=== PATIENT | female | born 1975 | race Caucasian/White ===

== ENCOUNTER 2017-02-15 12:13 | Observation (INO) | payer BC ==
[2017-02-15 12:45] LABS: #Eosinphils 0.1 thou/uL (0.0-0.7); #Lymphocytes 1.3 thou/uL (1.20-3.40); #Monocytes 0.4 thou/uL (0.11-0.59); #Neutrophils 6.4 thou/uL (1.40-6.50); %Basophils 0.3 % (0.0-1.0); %Eosinophils 0.6 % (0.0-10.0); %Lymphocytes 15.8 % (21.0-51.0); %Monocytes 4.9 % (0.0-10.0); Hematocrit 39.2 % (36.0-47.0); Red Blood Cell (RBC) Count 4.33 mill/uL (4.20-5.40); White Blood Cell (WBC) Count 8.2 thou/uL (4.8-10.8)
--- NOTE | 2017-02-15 12:56 | RAD ---
AP VIEW OF THE CHEST: INDICATION: Chest pain. COMPARISON: Prior exam dated 12/20/08. FINDINGS: Lungs are clear. There is mild to moderate cardiomegaly which is stable. Pulmonary vasculature is w ithin normal limits. No pleural effusion or pneumothorax is evident. IMPRESSION: Stable cardiomegaly. No definite acute cardiopulmonary abnormality. POS: [facility]
[2017-02-15 13:07] LABS: ALT (SGPT) 32 U/L (8-55); AST (SGOT) 28 U/L (5-34); Alkaline Phosphatase 90 U/L (40-150); Anion Gap 9 mmol/L (10-20); BUN (Urea Nitrogen) 13 mg/dL (7.0-18.7); Bilirubin, Total 0.4 mg/dL (0.2-1.2); CK (CPK) 35 U/L (29-168); Calc. Creatinine Clearance 0 mL/min (70-130); Calcium 8.6 mg/dL (7.8-10.44); Carbon Dioxide 29 mmol/L (22-29); Chloride 98 mmol/L (98-107); Estimated GFR-MDRD 81; Protein, Total 6.5 g/dL (6.0-8.3)
[2017-02-15 13:11] LABS: Troponin I Less than 0.010 ng/mL (< 0.028)
[2017-02-15] MEDS ORDERED: Nitroglycerin 2% Ointment 1 INCH/1 GM Packet ONE (14:31)
--- NOTE | 2017-02-15 14:39 | RAD ---
THREE VIEWS LEFT FOOT: History: Patient complains of left foot pain. FINDINGS: AP, lateral and oblique views of the left foot obtained. No evidence of left foot fractures, subluxations, or acute bony lesions seen. A calcaneal spur is see n. IMPRESSION: Calcaneal bone spur. No acute left foot bony abnormalities seen. POS: [facility]
--- NOTE | 2017-02-15 16:08 | HP ---
PRIMARY CARE PHYSICIAN: Monica Tristan, Family Nurse practitioner in [place]. REASON FOR ADMISSION: Chest pain and left foot pain. HISTORY OF PRESENT ILLNESS: A 41-year-old female with history of hypertension, diabetes type 2, dysl ipidemia, coronary artery disease with stent as well as morbid obesity, who was coming to emergency r oom for evaluation of her left foot pain which was ongoing for last 2-3 days. She reports her left f oot pain is in heel which is getting worse with walking, predominantly in the morning time and that w as bothering her and that is why she decided to come to emergency room for evaluation, but when they were on the way, at that time, patient was also having substernal chest pain which was pressure-like in sensation, 10/10 in intensity, radiating to left side of the chest associated with nausea and mild shortness of breath. That pain persisted up until they arrived to the emergency room, and after nit roglycerin, intensity of pain has significantly reduced to 5/10. She denied any associated palpitati ons, dizziness, or syncope. She denies any orthopnea, PND or leg swelling. Patient reports that this pain was exactly similar when she had cardiac catheterization and stent kamlesh willis in 07/2016 at [facility]. Subsequently, in 09/2016, patient had another cardiac ca theterization. At that time, her stent was patent and patient was advised on medical therapy. The patient reports that since September when patient was kept on Ranexa, she was not having any recurrent chest pain which she had before. She denies any fever or chills. She denies any trauma. She denie s any UTI symptoms. She denies any constipation, diarrhea, and melena. REVIEW OF SYSTEMS: The following complete review of systems was negative, unless otherwise mentioned in the HPI or below: Constitutional: Weight loss or gain, ability to conduct usual activities. Skin: Rash, itching. Eyes: Double vision, pain. ENT/Mouth: Nose bleeding, neck stiffness, pain, tenderness. Cardiovascular: Palpitations, dyspnea on exertion, orthopnea. Respiratory: Shortness of breath, wheezing, cough, hemoptysis, fever or night sweats. Gastrointestinal: Poor appetite, abdominal pain, heartburn, nausea, vomiting, constipation, or diarr hea. Genitourinary: Urgency, frequency, dysuria, nocturia. Musculoskeletal: Pain, swelling. Neurologic/Psychiatric: Anxiety, depression. Allergy/Immunologic: Skin rash, bleeding tendency. Please see my HPI for pertinent positive and negative. All other review of systems was reviewed and negative except as mentioned in the HPI. ALLERGIES: AMOXICILLIN and SULFA DRUGS. CURRENT HOME MEDICATIONS: Paxil 40 mg p.o. daily, metformin 1000 mg twice daily, glipizide 10 mg p.o . daily, Victoza 1.2 mg subcu daily, Mobic 15 mg p.o. daily, fenofibrate 145 mg p.o. daily, Lyrica 75 mg p.o. b.i.d., Tylenol #3 one tablet q.6 hourly p.r.n., Flexeril 10 mg t.i.d. p.r.n., Prinzide 20/1 2.5 one tablet p.o. daily, Novolin R as directed, aspirin one tablet p.o. daily, Lipitor 40 mg p.o. a t bedtime, Effient 10 mg p.o. daily, Protonix 40 mg p.o. daily. PAST MEDICAL HISTORY: Diabetes type 2, hypertension, dyslipidemia, coronary artery disease with sten t, morbid obesity, gastroesophageal reflux disease, chronic low back pain, diabetic neuropathy, and o steoarthritis. PAST SURGICAL HISTORY: Bilateral hand surgery, right shoulder surgery, right knee surgery, uvula rem stacy, appendicectomy, cholecystectomy, hysterectomy, tonsillectomy, lower back surgery, cardiac balta terization with stent placement in 07/2016, subsequent repeat cardiac catheterization in 09/2016, hys terectomy. PAST PSYCHIATRIC HISTORY: Anxiety and depression. SOCIAL HISTORY: Patient is and lives at home with family. No history of tobacco, alcohol or illicit drug abuse. FAMILY HISTORY: No strong family history of premature coronary artery disease, stroke or cancer. EMERGENCY ROOM COURSE: Patient is given nitro patch, aspirin 324 mg, and IV fluid. PHYSICAL EXAMINATION: VITAL SIGNS: On arrival, blood pressure 113/60, pulse 97, respiratory rate 22, temperature 98.1, sat uration 94% on room air, and weight 120 kilograms. GENERAL: Patient is currently alert, awake, no obvious acute distress. HEAD: Normocephalic, atraumatic. EYES: Pupils are round and reactive to light. Extraocular muscles intact. ENT: Oropharynx within normal limits. Moist mucous membranes. No oral lesions. No pharyngeal eryt mohini, no exudate. NECK: Supple, no JVD, no thyromegaly, no carotid bruit. LUNGS: Clear to auscultation without any rhonchi or rales. CARDIAC: S1 and S2 regular without any murmur. ABDOMEN: Soft, obesity present. Bowel sounds present, nontender, nondistended. No organomegaly, no mass, no suprapubic tenderness. BACK: Examination unremarkable, no CVA tenderness. EXTREMITIES: Upper extremity range of motion is normal. Lower extremities: No edema. Good periphe ral pulsation. Left heel tenderness. NEUROLOGIC: Nonfocal examination. HEMATOLOGICAL SYSTEM: No lymphadenopathy. SKIN: No skin rash. IMAGING AND SIGNIFICANT LABORATORY DATA: 1. EKG based on my review reveals normal sinus rhythm within normal limits. 2. X-ray foot showing large bone spur on the left heel. 3. Chest x-ray based on my review, no acute cardiopulmonary process. 4. CBC: WBC 8.2, hemoglobin 13.1, platelet 212. 5. BMP: Sodium 132, potassium 4.0, chloride 98, carbon dioxide 29, BUN 13, creatinine 0.78, glucose 324, calcium 8.6. 6. LFT: AST 28, ALT 32, alkaline phosphatase 90, albumin 3.5, CK 35, CK-MB 0.6, troponin I less irene n 0.010, BNP 18.8, lipase 49. ASSESSMENT AND PLAN/IMPRESSION: 1. Chest pain. Patient's chest pain description is atypical anginal. She has underlying coronary a rtery disease. At this point, her EKG is normal and her troponin is negative. Given acute onset of chest pain, we will keep this patient in hospital for observation and we will do serial cardiac enzym es and rule out acute coronary syndrome. We will check lipid profile for risk stratification. Meanw hile, we will continue with aspirin 325 mg p.o. daily, nitropatch q.8 hourly, and nitroglycerin p.r.n . basis. For further evaluation, we will do pharmacological stress test tomorrow morning. We will k eep her n.p.o. after midnight. This patient cannot do stress test exercise one because of her left h eel pain and her chronic back pain and that is why we will do pharmacological stress test. This norma ent also had cardiac catheterization in 09/2016. 2. Left heel pain, likely due to bone spur. The patient is advised to follow up on an outpatient ba sis with orthopedic physician. We will control with pain medication while in hospital. 3. Diabetes type 2, not well controlled. We will continue glipizide 10 mg p.o. daily, metformin 100 0 mg p.o. b.i.d. along with Victoza 1.2 mg subcu daily. We will also continue diabetic diet and insu lacey as per sliding scale protocol. 4. Dyslipidemia. We will check lipid profile tomorrow and continue fenofibrate 145 mg p.o. daily an d Lipitor 40 mg p.o. at bedtime. 5. Coronary artery disease with drug-eluting stent. We will continue Effient 10 mg p.o. daily and a spirin 325 mg p.o. daily. 6. Gastroesophageal reflux disease. We will continue Protonix 40 mg p.o. daily. 7. Hypertension. If blood pressure permits, then we will continue Prinzide 03/03.5 one tablet p.o. daily along with other medication. 8. Anxiety with depression. We will continue Paxil 40 mg p.o. daily. 9. Chronic low back pain. We will continue Flexeril 10 mg t.i.d. p.r.n. along with [place] p.r.n. bas is. 10. Diabetic neuropathy. We will continue Lyrica 75 mg twice daily. 11. Deep venous thrombosis prophylaxis not needed because we are expecting discharge in 24 hours. 12. Gastrointestinal prophylaxis, Protonix 40 mg p.o. daily. 13. Morbid obesity. Patient is given education about diet and weight loss education is given. Disposition plan based on stress test results, likely within 24 hours. Plan of care discussed with t daryn patient in detail in the emergency room.
[2017-02-15 16:28] LABS: Troponin I Less than 0.010 ng/mL (< 0.028)
[2017-02-15] MEDS ORDERED: Loperamide HCl 2 MG CAP PO PRN (18:10)
[2017-02-15] MEDS ORDERED: Milk Of Magnesia 30 ML UDCUP PO PRN (18:10)
[2017-02-15] MEDS ORDERED: Artificial Tears 18 DROP/0.9 ML EA EYE PRN (18:10)
[2017-02-15] MEDS ORDERED: Dextrose 50% Abboject 50 ML SYRINGE SLOW IVP PRN (18:10)
[2017-02-15] MEDS ORDERED: Sodium Chloride 0.65% Nasal 44 ML BOT EA NARE PRN (18:10)
[2017-02-15] MEDS ORDERED: hydrALAZINE 20 MG/ML VIAL SLOW IVP PRN (18:10)
[2017-02-15] MEDS ORDERED: Ondansetron ODT 4 MG TAB PO PRN (18:10)
[2017-02-15] MEDS ORDERED: Eucerin (Mineral Oil/Petrolatum,White) 30 gm Jar TOP PRN (18:10)
[2017-02-15] MEDS ORDERED: Ondansetron HCl/PF 4 MG/2 ML Vial IVP PRN (18:10)
[2017-02-15] MEDS ORDERED: HYDROcodone/Acetaminophen 5/325 mg Tablet PO PRN (18:10)
[2017-02-15] MEDS ORDERED: Senokot 8.6 MG TAB PO PRN (18:10)
[2017-02-15] MEDS ORDERED: Zolpidem Tartrate 5 MG TAB PO PRN (18:10)
[2017-02-15] MEDS ORDERED: Mag-Al 1200 mg/1200 mg/30 ML UDCUP PO PRN (18:10)
[2017-02-15] MEDS ORDERED: Loratadine 10 MG TAB PO PRN (18:10)
[2017-02-15] MEDS ORDERED: Cyclobenzaprine 10 MG TAB PO PRN (18:10)
[2017-02-15] MEDS ORDERED: Nitroglycerin 0.4 MG TAB (25 Tab Bottle) SL PRN (18:10)
[2017-02-15] MEDS ORDERED: Diabetic Tussin 200 MG/10 ML UDCUP PO PRN (18:10)
[2017-02-15] MEDS ORDERED: Dextrose 5% in Water 1,000 ML IV PRN (18:10)
[2017-02-15] MEDS ORDERED: Acetaminophen 325 MG TAB PO PRN (18:10)
[2017-02-15] MEDS ORDERED: HumaLOG 300 UNITS/3 ML VIAL SC PRN ×2 (18:10)
[2017-02-15 18:16] VITALS: BMI 45.4
[2017-02-15] MEDS ORDERED: metFORMIN 500 MG TAB PO SCH (18:30)
[2017-02-15 19:41] LABS: Troponin I Less than 0.010 ng/mL (< 0.028)
[2017-02-15] MEDS ORDERED: Atorvastatin Calcium 40 MG TAB PO SCH (21:00)
[2017-02-15] MEDS: Pregabalin 75 MG CAP PO SCH (21:04)
[2017-02-15] MEDS: Nitroglycerin 2% Ointment 1 INCH/1 GM Packet TOP SCH (21:07)
[2017-02-15] MEDS ORDERED: Insulin Detemir 100 UNITS/ML 10 UNITS in Pre-Filled Syringe 1 EACH SC SCH (22:45)
--- NOTE | 2017-02-16 05:39 | CON ---
HISTORY OF PRESENT ILLNESS: Kristi Mae is a 41-year-old white female, patient of Dr. Paz, who initially had a stent placed in [place]. She continued to have chest discomfort, underwent a repeat catheterization on 2016. She was found to have an ejection fraction of 55%. There was a 10% lesion proximal to the stent. The stent was widely patent without any jailing of the diagonal or septal branches. The remainder of coronary arteries were unremarkable. It was felt that she could possibly have microvascular angina and Ranexa 500 mg b.i.d. was added to her regimen. When she returned followup in 10/27/2016, she did not have any further episodes of chest discomfort or shortness of breath. She continued to be asymptomatic on the Ranexa until today when she was on her way to the emergency room for evaluation of left foot pain. She states that she again had the same chest pressure and heaviness that lasted approximately 1-1/2 hours and the pain was continuous. The pain was also somewhat pleuritic in nature. We just got to the emergency room when she had nitro paste applied, the pain resolved. At the present time, she is pain free. PAST MEDICAL HISTORY: Diabetes, hypertension, hypercholesterolemia, obstructive sleep apnea, obesity, anxiety. MEDICATIONS: When she was last seen in the office - vitamin D3, glipizide 10 mg b.i.d., Humulin R, Victoza 0.2 mL daily, metformin 500 mg 2 tablets b.i.d., Paxil 40 daily, Lyrica 75 mg - 2 capsules daily, folic acid daily, Levemir, meloxicam 15 mg daily, fenofibrate daily, Ranexa 500 mg b.i.d., Ecotrin 81 mg daily, Effient 10 mg daily, pantoprazole 40 mg b.i.d., atorvastatin 20 mg daily , lisinopril 5 mg daily, KCl 10 mEq daily, furosemide 20 daily. ALLERGIES: AMOXICILLIN, RASPBERRY, and SULFA. OPERATIONS: Bilateral hand surgery, right shoulder surgery, right knee surgery , uvulectomy, appendectomy, cholecystectomy, hysterectomy, tonsillectomy, lower back surgery, lithotripsy, and coronary stent placement. SOCIAL HISTORY: She does not smoke or drink. FAMILY HISTORY: Negative for coronary artery disease. REVIEW OF SYSTEMS: Twelve point review of systems otherwise unremarkable. PHYSICAL EXAMINATION: VITAL SIGNS: Blood pressure 118/67, pulse 94. HEENT: PERRL. NECK: Supple. CHEST: Clear. CARDIAC: S1 and S2 are normal without any S3, S4, or murmurs. ABDOMEN: Obese, normal bowel sounds. No tenderness. EXTREMITIES: Revealed no clubbing, cyanosis, or edema. NEUROLOGIC: Grossly intact. SKIN: Warm and dry. LABORATORY DATA AND DIAGNOSTIC DATA: EKG revealed normal sinus rhythm and is unremarkable. CBC is unremarkable. Sodium 132, potassium 4.0, chloride 98, carbon dioxide 29, BUN 13, creatinine 0.78, glucose 324. Cardiac enzymes are negative x2. IMPRESSION: 1. Recurrence of chest discomfort. She has been pain free for over 4 months on Ranexa. This certainly could represent microvascular angina. 2. History of stent placement in the proximal left anterior descending with continued good results in 09/2016. 3. Hypertension. 4. Diabetes. 5. Hypercholesterolemia. 6. Obesity. PLAN: Ranexa will be increased from 500 b.i.d. to 1000 mg b.i.d. With cardiac catheterization, 4-5 months ago, no other diagnostic evaluation may be needed. The patient will be further evaluated by Dr. Paz in the morning. DANN
[2017-02-16] MEDS: Nitroglycerin 2% Ointment 1 INCH/1 GM Packet TOP SCH (06:44)
[2017-02-16] MEDS ORDERED: glipiZIDE 10 MG TAB PO SCH (07:30)
[2017-02-16] MEDS ORDERED: metFORMIN 500 MG TAB PO SCH (08:00)
[2017-02-16 08:28] VITALS: BP 124/61; TEMP 97.6
[2017-02-16] MEDS ORDERED: Prasugrel 10 MG TAB PO SCH (09:00)
[2017-02-16] MEDS ORDERED: PARoxetine 20 MG TAB PO SCH (09:00)
[2017-02-16] MEDS ORDERED: Lisinopril/Hydrochlorothiazide 20 mg/12.5 mg Tablet PO SCH (09:00)
[2017-02-16] MEDS ORDERED: Aspirin 325 MG TAB PO SCH (09:00)
[2017-02-16] MEDS ORDERED: Fenofibrate Nanocrystallized 145 MG TAB PO SCH (09:00)
[2017-02-16] MEDS: Pregabalin 75 MG CAP PO SCH (09:26)
--- NOTE | 2017-02-16 09:56 | PRG ---
DATE OF SERVICE: 02/16/2017 Ms. Mae is feeling better today. She had a prolonged episode of anginal type chest pain yesterday. She is doing well today. PHYSICAL EXAMINATION: VITAL SIGNS: Blood pressure is 124/61, pulse 80, it is regular. LUNGS: Clear. CARDIAC: Normal S1, normal S2. ASSESSMENT: 1. Previous stent implantation. 2. Cardiac catheterization this summer showing no restenosis, no significant areas of ischemia. 3. Negative cardiac enzymes, negative EKG. 4. This may be microvascular angina versus spasm. PLAN: 1. Add nitroglycerin if needed. 2. Increase Ranexa. 3. Follow up with me in a couple of months in the office.
--- NOTE | 2017-02-16 11:06 | DIS ---
DATE OF ADMISSION: 02/15/2017 DATE OF DISCHARGE: 02/16/2017 PRIMARY CARE PHYSICIAN: WM Lozada, Nurse Practitioner DISCHARGE DISPOSITION: Home. PRIMARY DISCHARGE DIAGNOSES: 1. Chest pain, ruled out acute coronary syndrome, suspected from microvascular angina. 2. Left foot pain due to calcaneal bones spur. SECONDARY DISCHARGE DIAGNOSES: Coronary artery disease with history of stent, hypertension, dyslipid emia, diabetes type 2, morbid obesity, gastroesophageal reflux disease, chronic low back pain, anxiet y, and depression. PRIMARY PROCEDURE/OPERATION: None. RADIOLOGICAL INVESTIGATION: Chest x-ray showed no acute cardiopulmonary process. Foot x-ray showed calcaneal bone spur. SIGNIFICANT LABORATORY DATA: WBC 8.2, hemoglobin 13.1, platelet 212, LDL 23, HDL 32, total cholester ol 88. Cardiac enzymes negative. Lipase 49, sodium 132, creatinine 0.78. LFTs normal. BNP 18.8. DISCHARGE MEDICATIONS: New medications, Ranexa 1000 mg p.o. b.i.d. Continue following medications: Tylenol #3 one tablet q.6 hours p.r.n., aspirin 81 mg p.o. daily, Lipitor 20 mg p.o. daily, vitamin D3 3000 units p.o. daily, Flexeril 10 mg t.i.d. p.r.n., fenofibrate 145 mg p.o. daily, Lasix 20 mg p. o. daily, glipizide ER 10 mg p.o. b.i.d., Levemir 20 units subcutaneous at bedtime, Novolin R 10 unit s subcu t.i.d. with meals, Victoza 1.2 mg subcutaneously daily, lisinopril 5 mg p.o. daily, Mobic 15 mg p.o. daily, metformin ER 1000 mg p.o. b.i.d., Protonix 40 mg p.o. daily, Paxil 40 mg p.o. daily, E ffient 10 mg p.o. daily, Lyrica 100 mg twice daily. CONTRAINDICATIONS: None. CODE STATUS: FULL CODE. INPATIENT CONSULTANTS: Dr. Berry and Dr. Paz saw this patient while in hospital. TEST RESULTS PENDING ON DISCHARGE: None. ALLERGIES: AMOXICILLIN, RASPBERRY and SULFA DRUGS. DISCHARGE PLAN: Post hospital, the patient will follow up with primary care physician. DISCHARGE DISPOSITION: Home. The patient will follow up with primary care physician in 1 week and Jessica Paz as instructed. HOSPITAL COURSE: A 41-year-old female who was coming to the ER for evaluation of her left calcaneal pain and on the way to coming to the ER, patient was having chest pain and that was improved with nit roglycerin. The patient had electrocardiogram which was unremarkable. Cardiac enzymes were negative . The patient was admitted for observation. We initially tried to do a stress test, but Cardiology saw this patient and they recommended not to do a stress test given she had a negative cardiac cathet erization in 09/2016. Patient was improving with the Ranexa and that is why this time, Cardiology re commended to increased dose of Ranexa to 1000 mg p.o. b.i.d. Rest of medication was continued as per previous. Her cardiac enzymes remained negative. Her chest pain resolved. Her calcaneal pain is also improvin g. We advised her to follow up with orthopedic physician as an outpatient basis. Patient was okay w ith not doing any further testing as per Cardiology. The patient is seen and examined at bedside cuco smith. PHYSICAL EXAMINATION: VITAL SIGNS: Currently, temperature 97.6, pulse 82, respiratory rate 16, saturation 93%, blood pres sure 124/61, weight 276 pounds. GENERAL: The patient is currently alert, awake, no acute distress. HEAD: Normocephalic, atraumatic. LUNGS: Clear. CARDIAC: S1, S2 regular without any murmur. ABDOMEN: Soft and benign. EXTREMITIES: No edema. NEUROLOGIC: Nonfocal examination. The patient is medically stable for discharge today.
== END 2017-02-16 10:50 | disposition home or self-care (01) ==
LOC: ERS 12:13 → 2SW 14:53
PROVIDERS: ADMIT Internal Medicine; ATTEND Internal Medicine
DX: M79.672 Pain in left foot (principal); I25.10 Atherosclerotic heart disease of native coronary artery without angina pectoris; I10 Essential (primary) hypertension; E66.01 Morbid (severe) obesity due to excess calories; K21.9 Gastro-esophageal reflux disease without esophagitis; M54.5 Low back pain; G89.29 Other chronic pain; E11.40 Type 2 diabetes mellitus with diabetic neuropathy, unspecified; M19.90 Unspecified osteoarthritis, unspecified site; F41.8 Other specified anxiety disorders; G47.33 Obstructive sleep apnea (adult) (pediatric); E78.00 Pure hypercholesterolemia, unspecified; Z68.42 Body mass index [BMI] 45.0-49.9, adult; Z79.1 Long term (current) use of non-steroidal anti-inflammatories (NSAID); Z79.02 Long term (current) use of antithrombotics/antiplatelets; Z79.82 Long term (current) use of aspirin; Z79.4 Long term (current) use of insulin; Z79.899 Other long term (current) drug therapy; Z88.0 Allergy status to penicillin; Z88.2 Allergy status to sulfonamides; Z91.018 Allergy to other foods; Z95.818 Presence of other cardiac implants and grafts; Z90.49 Acquired absence of other specified parts of digestive tract; Z90.710 Acquired absence of both cervix and uterus; Z90.89 Acquired absence of other organs; Z98.890 Other specified postprocedural states
CPT/HCPCS: 36415; 36416; 71010; 80053; 80061; 82553; 83690; 83880; 84484; 85025; 93005; 96360; 96361; A4216; G0378; J1815

== ENCOUNTER 2017-04-03 18:25 | Emergency (ER) | payer BC ==
[2017-04-03 19:21] LABS: #Basophils 0.1 thou/uL (0.0-0.2); #Eosinphils 0.3 thou/uL (0.0-0.7); #Lymphocytes 3.7 thou/uL (1.20-3.40); #Monocytes 0.5 thou/uL (0.11-0.59); #Neutrophils 5.3 thou/uL (1.40-6.50); %Basophils 0.6 % (0.0-1.0); %Eosinophils 2.6 % (0.0-10.0); %Lymphocytes 37.7 % (21.0-51.0); %Monocytes 5.3 % (0.0-10.0); %Neutrophils 53.9 % (42.0-75.0); Hemoglobin 13.1 g/dL (12.0-16.0); Mean Corpuscular HGB CONC 32.7 g/dL (32.0-36.0); Mean Corpuscular Volume 88.5 fl (81.0-99.0); Mean Platelet Volume 7.5 fL (7.4-10.4); Platelet Count 236 thou/uL (130-400); RBC Distribution Width 12.9 % (11.5-14.5); Red Blood Cell (RBC) Count 4.51 mill/uL (4.20-5.40); White Blood Cell (WBC) Count 9.9 thou/uL (4.8-10.8)
[2017-04-03 19:48] LABS: ALT (SGPT) 34 U/L (8-55); AST (SGOT) 18 U/L (5-34); Albumin 3.9 g/dL (3.5-5.0); Alkaline Phosphatase 111 U/L (40-150); Anion Gap 15 mmol/L (10-20); BUN (Urea Nitrogen) 11 mg/dL (7.0-18.7); Bilirubin, Total 0.2 mg/dL (0.2-1.2); Calc. Creatinine Clearance 0 mL/min (70-130); Calcium 9.8 mg/dL (7.8-10.44); Carbon Dioxide 25 mmol/L (22-29); Chloride 100 mmol/L (98-107); Estimated GFR-MDRD 85; Glucose 301 mg/dL (70-105); Protein, Total 6.9 g/dL (6.0-8.3); Sodium 136 mmol/L (136-145)
--- NOTE | 2017-04-03 20:32 | RAD ---
LEFT FOOT: 04/03/17 Three views. HISTORY: Left foot pain. FINDINGS/IMPRESSION: Enthesophytes are seen from the plantar and posterior calcaneus. Plantar enthesophyte measures up to 1.0 cm. Mild degenerative change at the tarsometatarsal joints. MTP and IP joints are unremarkable wi th minimal DJD at the first MTP joint. No fracture or acute abnormality identified. POS: [facility]
--- NOTE | 2017-04-03 22:56 | CT ---
CT SCAN OF LEFT FOOT: 04/03/17 Multiple axial tomograms obtained through the left foot with multiplanar reconstructions. HISTORY: Fell one month ago with persistent left foot pain. FINDINGS: Enthesophytes are seen from the plantar and posterior calcaneus. The plantar enthesophyte measures ap proximately 1.5 cm in length. The tarsals appear intact. There are degenerative changes in the intert arsal joints with mild spurring. Anterior spurring is seen from the second cuneiform. Tarsometatarsal alignment is normally maintained. There is no fracture or dislocation seen. The metatarsals and phal anges appear intact. IMPRESSION: There are degenerative changes as described. No acute fracture identified. POS: [facility]
[2017-04-03] MEDS ORDERED: HYDROcodone/Acetaminophen 10/325 mg Tablet ONE (23:08)
== END 2017-04-04 00:10 | disposition home or self-care (01) ==
LOC: ERS 18:25
DX: S93.402A Sprain of unspecified ligament of left ankle, initial encounter (principal); I10 Essential (primary) hypertension; E11.9 Type 2 diabetes mellitus without complications; X50.1XXA Overexertion from prolonged static or awkward postures, initial encounter
CPT/HCPCS: 36415; 80053; 85025; 85379

== ENCOUNTER 2017-06-04 13:17 | Outpatient (CLI) | payer BC ==
--- NOTE | 2017-06-04 14:57 | ULT ---
LEFT LOWER EXTREMITY VENOUS DOPPLER ULTRASOUND: 06/04/2017 HISTORY: Left lower extremity edema and pain. Assess for DVT. COMPARISON: None. TECHNIQUE: Multiplanar [place]-scale sonographic imaging of the venous structures of the left lower extremity obtai john with color-flow and spectral analysis. FINDINGS: The left common femoral vein, greater saphenous vein, profunda femoral vein, femoral vein, popliteal vein, and posterior tibial vein are patent. There is normal blood flow, augmentation, and compressio n within the deep venous system of the left lower extremity. No evidence for DVT. IMPRESSION: No evidence for deep venous thrombosis of the left lower extremity. POS: [facility]
== END 2017-06-04 13:18 | disposition home or self-care (01) ==
LOC: ULT 13:17
PROVIDERS: ATTEND Nurse Practitioner Family
DX: M79.605 Pain in left leg (principal); R60.0 Localized edema

== ENCOUNTER 2018-11-17 17:01 | Observation (INO) | payer BC ==
--- NOTE | 2018-11-17 17:24 | RAD ---
Chest 2 views HISTORY: Chest pain. COMPARISON: 12/20/2008. FINDINGS: Cardiac silhouette is upper limits of normal in size. Shallow inspiration accentuates pulmo nary markings. Mediastinum is midline. No confluent airspace consolidation, pneumothorax, or pleural fluid are apparent. IMPRESSION: No active cardiopulmonary abnormalities are demonstrated.
[2018-11-17 17:31] LABS: Bilirubin Small (Negative); Blood, Urine Negative (Negative); Glucose, Urine (Dipstick) Negative (Negative); Leukocyte Trace (Negative); Nitrite Positive (Negative); Protein, Urine (Dipstick) 100 mg/dL (Neg-Trace); Urobilinogen 0.2 mg/dL (Less than 2)
[2018-11-17 17:32] LABS: Clarity Turbid (Clear)
[2018-11-17 17:42] LABS: #Basophils 0.1 thou/uL (0.0-0.2); #Eosinphils 4.1 thou/uL (0.0-0.7); #Lymphocytes 5.3 thou/uL (1.20-3.40); #Monocytes 0.6 thou/uL (0.11-0.59); #Neutrophils 8.1 thou/uL (1.40-6.50); %Basophils 0.7 % (0.0-1.0); %Eosinophils 22.7 % (0.0-10.0); %Lymphocytes 28.8 % (21.0-51.0); %Monocytes 3.3 % (0.0-10.0); %Neutrophils 44.4 % (42.0-75.0); Hemoglobin 13.6 g/dL (12.0-16.0); Mean Corpuscular HGB CONC 33.9 g/dL (32.0-36.0); Mean Corpuscular Hemoglobin 29.7 pg (27.0-31.0); Mean Corpuscular Volume 87.7 fL (78.0-98.0); Mean Platelet Volume 8.1 fL (7.4-10.4); Platelet Count 270 thou/uL (130-400); Red Blood Cell (RBC) Count 4.58 mill/uL (4.20-5.40); White Blood Cell (WBC) Count 18.2 thou/uL (4.8-10.8)
[2018-11-17 17:44] LABS: Bacteria/HPF 4+ HPF (None Seen); RBC/HPF 0-3 HPF (0-3); Squamous Epithelial 21-50 HPF (0-3)
[2018-11-17 18:06] LABS: ALT (SGPT) 48 U/L (8-55); AST (SGOT) 34 U/L (5-34); Albumin 4.1 g/dL (3.5-5.0); Alkaline Phosphatase 112 U/L (40-150); Anion Gap 13 mmol/L (10-20); BUN (Urea Nitrogen) 22 mg/dL (7.0-18.7); Bilirubin, Total 0.3 mg/dL (0.2-1.2); Calc. Creatinine Clearance 0 mL/min (70-130); Calcium 9.7 mg/dL (7.8-10.44); Carbon Dioxide 29 mmol/L (22-29); Chloride 97 mmol/L (98-107); Estimated GFR-MDRD 58; Globulin 3.3 g/dL (2.4-3.5); Glucose 219 mg/dL (70-105); Potassium 3.9 mmol/L (3.5-5.1); Protein, Total 7.4 g/dL (6.0-8.3); Sodium 135 mmol/L (136-145)
[2018-11-17] MEDS ORDERED: Ondansetron ODT 4 MG TAB ONE (20:02)
[2018-11-17] MEDS ORDERED: Meclizine HCl 25 MG TAB ONE ×2 (20:02→20:42)
[2018-11-17 20:37] LABS: Troponin I Less than 0.010 ng/mL (< 0.028)
[2018-11-17] MEDS ORDERED: Aspirin Chewable 81 MG TAB ONE (20:42)
[2018-11-17] MEDS ORDERED: Ondansetron PF 4 MG/2 ML Vial ONE (20:42)
[2018-11-17] MEDS ORDERED: cefTRIAXone\\ROCEPHIN 1 GM VIAL ONE (20:42)
[2018-11-17 22:46] VITALS: BMI 43.0
[2018-11-17] MEDS ORDERED: Ondansetron ODT 4 MG TAB SL PRN (22:51)
[2018-11-17] MEDS ORDERED: Ondansetron PF 4 MG/2 ML Vial IVP PRN (22:51)
[2018-11-18 00:08] LABS: Troponin I Less than 0.010 ng/mL (< 0.028)
[2018-11-18] MEDS ORDERED: Ondansetron PF 4 MG/2 ML Vial IVP PRN (00:55)
[2018-11-18] MEDS ORDERED: Ondansetron ODT 4 MG TAB PO PRN (00:55)
[2018-11-18] MEDS ORDERED: Acetaminophen 650 MG Suppository PR PRN (00:55)
[2018-11-18] MEDS ORDERED: Cyclobenzaprine 10 MG TAB PO PRN (01:04)
[2018-11-18] MEDS ORDERED: Pregabalin 50 MG CAP PO SCH (01:30)
[2018-11-18] MEDS ORDERED: Amitriptyline HCl 25 MG TAB PO SCH ×2 (01:30→21:00)
[2018-11-18] MEDS ORDERED: Sodium Chloride 0.45% 1,000 ML IV SCH (02:00)
[2018-11-18] MEDS ORDERED: Dextrose 5% in Water 1,000 ML IV PRN (02:03)
[2018-11-18] MEDS ORDERED: Insulin Regular 300 UNITS/3 ML VIAL SC PRN ×2 (02:03)
[2018-11-18] MEDS ORDERED: Dextrose 50% Abboject 50 ML SYRINGE SLOW IVP PRN (02:03)
--- NOTE | 2018-11-18 02:51 | HP ---
PRIMARY CARE PHYSICIAN: Jaswinder Laboy MD CHIEF COMPLAINT: Lightheadedness, weakness, and tachycardia. HISTORY OF PRESENT ILLNESS: Ms. Mae is a 43-year-old woman, with a past medical history of coronary artery disease, who had an AZ in 2017 and presents today due to concerns of her lightheadedness and tachycardia which she experienced earlier today. She states she has been feeling unwell for the last 2 to 3 days. She states she has had moments of feeling very lightheaded and as if she might faint or as if her legs might give out. She feels generally weak and worn out. She has also noted some shortness of breath with exertion. Today, she had a similar episode while at work and used her Apple Watch to check her heart rate and noted it was in the 120s. She checked it once again 15 minutes later and it continued to be elevated. She denies having any chest pain per se, but states she has been experiencing a pressure and stretching sensation. She denies having any cough or hemoptysis. She opted to come to the emergency department and in the ER, she was noted to have a slightly elevated heart rate of 103. She had a blood pressure of 108/61. She had an EKG done showing sinus tachycardia with a heart rate of 104. No ST-segment changes or T-wave abnormalities present. A chest x-ray was obtained and showed no intrathoracic abnormalities. Due to the reported chest pressure and cardiac history with comorbidities including diabetes and hypertension, she was referred for ACS rule out. While in the ER, she did undergo laboratory studies that were notable for a white count of 18.2. Her sodium was slightly low at 135, potassium normal at 3.9. Renal function was reduced compared to baseline. She has a BUN of 22, creatinine of 1.03, and a GFR of 58 compared to 85 over a year ago. No recent renal functions to compare to. The patient does state that she has been very well hydrated the last several days. LFTs were unremarkable. Troponin negative x2. Urinalysis was done and notable for turbid appearance, 100 of protein, trace ketones, positive for nitrites, trace leukocyte esterase, 7 to 10 white blood cells, and 4+ bacteria. She denies having any flank pain or suprapubic discomfort. No dysuria or hematuria. She was given 1 g ceftriaxone. PAST MEDICAL HISTORY: 1. Type 2 diabetes mellitus. 2. Hypertension. 3. Coronary artery disease. 4. AZ in 2017. 5. Obesity. PAST SURGICAL HISTORY: 1. Bilateral hand surgery. 2. Right shoulder surgery. 3. Right knee surgery. 4. Uvula removed. 5. . 6. Appendectomy. 7. Cholecystectomy. 8. Hysterectomy. 9. Tonsillectomy. 10. Low back surgery in September 2014. 11. Heart stent x1 in July 2016. 12. Hysterectomy. SOCIAL HISTORY: She lives at home with her family. Denies any alcohol use, drug use, or smoking. ALLERGIES: 1. AMOXICILLIN. 2. SULFA. CURRENT MEDICATIONS: 1. Lisinopril/hydrochlorothiazide. 2. Metformin. 3. Glipizide. 4. Victoza. 5. Lyrica. 6. Novolin. 7. Effient. 8. Paxil. 9. Amitriptyline. 10. Levemir. 11. Aspirin. PHYSICAL EXAMINATION: GENERAL: The patient appears well developed, well nourished, and is in no acute distress. VITAL SIGNS: Temperature 97.6, pulse 94, respirations 15, O2 saturation 95% on room air, blood pressure 108/59. HEENT: Normocephalic and atraumatic. Pupils are equal, round, and reactive to light. Sclerae are without icterus. Oropharynx is clear. NECK: Supple without lymphadenopathy. LUNGS: Clear to auscultation bilaterally without any wheezes, rales, or rhonchi. CARDIAC: Regular rate and rhythm. ABDOMEN: Soft, nontender, nondistended. Normoactive bowel sounds present. EXTREMITIES: No lower leg swelling or edema. NEUROLOGIC: Alert and oriented x3. SKIN: Warm and dry. Face has a flushed appearance, however, afebrile. No rash or jaundice. INVESTIGATIONS: As mentioned above in HPI. IMPRESSION AND PLAN: Ms. Mae is a 43-year-old woman, who has been referred for management of the following. 1. Presyncope. The patient with multiple comorbidities including coronary artery disease. Echocardiogram has been requested. We will check orthostatic blood pressures. This is likely associated with underlying infection and dehydration. 2. Acute coronary syndrome rule out. The patient, however, reported pressure or tightness across her chest. States this feels different from her previous myocardial infarction. Given comorbidities and previous myocardial infarction, she has been referred for acute coronary syndrome rule out. Troponins negative x2. We will continue to trend. We will add a D-dimer given the shortness of breath and tachycardia. 3. Urinary tract infection. The patient was tachycardic with an elevated white count of 18.2 and with blood pressure on the lower side. She is likely septic from urinary tract infection. IV antibiotics started and we will continue. This is more likely the cause of her generalized weakness and presyncopal episodes as well as tachycardia. We will add on lactic acid. We will give IV fluids. Urine culture requested. 4. Hypertension. We will hold her blood pressure medications for now given the low blood pressure and reduced renal function, though unsure what her baseline is as the last creatinine and GFR available on file is over a year ago. 5. Diabetes mellitus. We will resume home medications. We will initiate insulin sliding scale. Continue to monitor glucose. 6. Gastrointestinal prophylaxis. We will resume her Protonix. 7. Deep venous thrombosis prophylaxis. Awaiting D-dimer. The patient is ambulatory. 8. Code status, full. Her surrogate decision maker is her , Robert Mae. The patient's case discussed with attending who agrees with plan of care as described above. Job ID: [id number]
[2018-11-18] MEDS: Sodium Chloride 0.45% 1,000 ML IV SCH ×3 (03:40→22:48)
[2018-11-18 04:19] LABS: #Basophils 0.1 thou/uL (0.0-0.2); #Eosinphils 3.8 thou/uL (0.0-0.7); #Lymphocytes 5.2 thou/uL (1.20-3.40); #Monocytes 0.7 thou/uL (0.11-0.59); #Neutrophils 6.1 thou/uL (1.40-6.50); %Basophils 0.7 % (0.0-1.0); %Eosinophils 23.9 % (0.0-10.0); %Lymphocytes 32.7 % (21.0-51.0); %Monocytes 4.3 % (0.0-10.0); %Neutrophils 38.4 % (42.0-75.0); Mean Platelet Volume 7.9 fL (7.4-10.4); Platelet Count 237 thou/uL (130-400); RBC Distribution Width 13.1 % (11.5-14.5); Red Blood Cell (RBC) Count 4.35 mill/uL (4.20-5.40); White Blood Cell (WBC) Count 15.8 thou/uL (4.8-10.8)
[2018-11-18 04:36] LABS: Anion Gap 12 mmol/L (10-20); BUN (Urea Nitrogen) 23 mg/dL (7.0-18.7); Calc. Creatinine Clearance 164 mL/min (70-130); Calcium 9.1 mg/dL (7.8-10.44); Carbon Dioxide 28 mmol/L (22-29); Chloride 97 mmol/L (98-107); Estimated GFR-MDRD 77; Glucose 189 mg/dL (70-105); Sodium 133 mmol/L (136-145)
[2018-11-18 05:41] LABS: Lactic Acid 1.4 mmol/L (0.5-2.2)
--- NOTE | 2018-11-18 08:36 | CT ---
PRELIMINARY REPORT/[facility]/EMERGENCY AFTER HOURS PROCEDURE: EXAM: CT Angiography Chest With Contrast EXAM DATE/TIME: 11/18/2018 2:16 AM CLINICAL HISTORY: 43 years old, female; Patient HX: Chest pain, SOB on exertion, elevated d-dimer TECHNIQUE: Imaging protocol: Computed tomographic angiography of the chest with intravenous contrast. 3D renderi ng: MIP reconstructed images were created and reviewed. COMPARISON: No relevant prior studies available. FINDINGS: Pulmonary arteries: Normal. No pulmonary emboli. Aorta: Unremarkable. No aortic aneurysm. No aortic dissection. Lungs: Lungs are clear allowing for expiratory phase imaging. Pleural space: Unremarkable. No pneumothorax. No pleural effusion. Heart: Unremarkable. No cardiomegaly. No pericardial effusion. Mediastinum: Esophagus is unremarkable. Lymph nodes: Unremarkable. No enlarged lymph nodes. Bones/joints: Unremarkable. No acute fracture. Soft tissues: Unremarkable. IMPRESSION: No acute findings. Thank you for allowing us to participate in the care of your patient. Dictated and Authenticated by: Minh Coreas MD 11/18/2018 3:02 AM Central Time ([place] & [place]) FINAL REPORT CT PULMONARY ANGIOGRAM WITH IV CONTRAST AND 3D POST PROCESSING: I agree with the preliminary report given by Dr. Minh Coreas of [facility]. POS: [facility]
[2018-11-18] MEDS ORDERED: Lisinopril/Hydrochlorothiazide 20/25 mg Tablet PO SCH (09:00)
[2018-11-18] MEDS ORDERED: Liraglutide [Victoza 3-Pak] 1.2 MG SC SCH (09:00)
[2018-11-18] MEDS ORDERED: Furosemide 20 MG TAB PO SCH (09:00)
[2018-11-18] MEDS ORDERED: Famotidine/PF 20 mg/2ml Vial SLOW IVP SCH (09:00)
[2018-11-18] MEDS: PARoxetine 20 MG TAB PO SCH (09:26)
[2018-11-18] MEDS: Pregabalin 50 MG CAP PO SCH ×2 (09:26→21:37)
[2018-11-18] MEDS: Prasugrel 10 MG TAB PO SCH (09:27)
[2018-11-18] MEDS: Aspirin Chewable 81 MG TAB PO SCH (09:27)
[2018-11-18] MEDS: Insulin Regular 300 UNITS/3 ML VIAL SC SCH ×4 (09:28→21:47)
[2018-11-18] MEDS ORDERED: Iopamidol 370 76% 100 ML VIAL ONE (10:23)
--- NOTE | 2018-11-18 17:26 | PDOC.HOSPP ---
- Subjective Encounter Date: 11/18/18 Encounter Time: 09:45 Subjective: pt up in bed no complains - Objective Vital Signs & Weight: Vital Signs (12 hours) Temp Pulse Resp BP Pulse Ox 11/18/18 13:57 97.6 F 96 16 109/61 94 L 11/18/18 11:15 98 F 84 18 117/65 93 L 11/18/18 08:00 97.9 F 90 20 113/62 93 L Weight Weight 258 lb 11.2 oz Result Diagrams: 11/18/18 04:08 11/18/18 04:08 Additional Labs: Accuchecks 11/18/18 11/18/18 11/17/18 10:21 05:38 22:40 POC Glucose 175 H 162 H 130 H Hospitalist ROS - Review of Systems Cardiovascular: denies: chest pain, palpitations, orthopnea, paroxysmal noc. dyspnea, edema, light headedness, other Gastrointestinal: denies: nausea, vomitting, abdominal pain, diarrhea, constipation, melena, hematochezia, other - Medication Medications: Active Medications Generic Name Dose Route Start Last Admin Trade Name Freq PRN Reason Stop Dose Admin Aspirin 81 mg 11/18/18 09:00 11/18/18 09:27 Aspirin Chewable PO 81 mg DAILY TRACEY Administration Cholecalciferol 3,000 units 11/18/18 09:00 11/18/18 09:27 Vitamin D3 PO 3,000 units QAM TRACEY Administration Sodium Chloride 1,000 mls @ 125 mls/hr 11/18/18 03:41 11/18/18 10:58 1/2 Normal Saline IV 1,000 mls .Q8H TRACEY Administration Insulin Human Regular 15 units 11/18/18 08:00 11/18/18 12:31 Humulin R SC Not Given QID-WM TRACEY Pantoprazole Sodium 40 mg 11/18/18 09:00 11/18/18 09:27 Protonix PO 40 mg DAILY TRACEY Administration Paroxetine HCl 40 mg 11/18/18 09:00 11/18/18 09:26 Paxil PO 40 mg QAM TRACEY Administration Prasugrel 10 mg 11/18/18 09:00 11/18/18 09:27 Effient PO 10 mg QAM TRACEY Administration Pregabalin 100 mg 11/18/18 09:00 11/18/18 09:26 Lyrica PO 100 mg BID TRACEY Administration - Exam Neck: negative: supple, symmetric, no JVD, no thyromegaly, no lymphadenopathy, no carotid bruit, JVD Heart: negative: RRR, no murmur, no gallops, no rubs, normal peripheral pulses, irregular, diminshed peripheral pulses, murmur present, II/IV, III/IV Respiratory: negative: CTAB, no wheezes, no rales, no ronchi, normal chest expansion, no tachypnea, normal percussion, rales, rhonchi, tachypneic, wheezes Hosp A/P (1) Sepsis Code(s): A41.9 - SEPSIS, UNSPECIFIED ORGANISM Status: Acute (2) UTI (urinary tract infection) Status: Acute (3) Hypertension Code(s): I10 - ESSENTIAL (PRIMARY) HYPERTENSION Status: Chronic (4) Morbid obesity with BMI of 45.0-49.9, adult Code(s): E66.01 - MORBID (SEVERE) OBESITY DUE TO EXCESS CALORIES; Z68.42 - BODY MASS INDEX (BMI) 45.0-49.9, ADULT Status: Chronic - Plan will continue abx for now. will do a stress test on pt since she states she has been sob on exertion. cta negative.
[2018-11-18] MEDS: Acetaminophen 325 MG TAB PO PRN (20:08)
[2018-11-18] MEDS ORDERED: Insulin Glargine 20 UNITS in Pre-Filled Syringe 1 EACH SC SCH (21:00)
[2018-11-18] MEDS ORDERED: Non-Formulary Item 1 EACH (Insulin Detemir 100 Units/Ml [Levemir] 20 UNITS) SQ SCH (21:00)
[2018-11-18] MEDS ORDERED: cefTRIAXone\\ROCEPHIN 1 GM in Sodium Chloride 0.9% 100 ML IVPB SCH (21:00)
[2018-11-19 08:09] VITALS: TEMP 97.7
[2018-11-19 08:10] LABS: #Eosinphils 1.8 thou/uL (0.0-0.7); #Lymphocytes 3.9 thou/uL (1.20-3.40); #Monocytes 0.5 thou/uL (0.11-0.59); #Neutrophils 4.4 thou/uL (1.40-6.50); %Basophils 0.4 % (0.0-1.0); %Lymphocytes 36.9 % (21.0-51.0); %Monocytes 4.6 % (0.0-10.0); %Neutrophils 41.2 % (42.0-75.0); Hemoglobin 12.8 g/dL (12.0-16.0); Mean Corpuscular HGB CONC 33.7 g/dL (32.0-36.0); Mean Corpuscular Hemoglobin 29.7 pg (27.0-31.0); Mean Platelet Volume 7.7 fL (7.4-10.4); Platelet Count 210 thou/uL (130-400); RBC Distribution Width 12.7 % (11.5-14.5); White Blood Cell (WBC) Count 10.7 thou/uL (4.8-10.8)
[2018-11-19] MEDS: Insulin Regular 300 UNITS/3 ML VIAL SC SCH ×2 (08:22→11:20)
[2018-11-19] MEDS: Sodium Chloride 0.45% 1,000 ML IV SCH (08:23)
[2018-11-19] MEDS: Aspirin Chewable 81 MG TAB PO SCH (08:23)
[2018-11-19] MEDS: PARoxetine 20 MG TAB PO SCH (08:24)
[2018-11-19] MEDS: Pregabalin 50 MG CAP PO SCH (08:24)
[2018-11-19] MEDS: Prasugrel 10 MG TAB PO SCH (08:28)
[2018-11-19 08:30] LABS: Anion Gap 10 mmol/L (10-20); BUN (Urea Nitrogen) 11 mg/dL (7.0-18.7); Calc. Creatinine Clearance 214 mL/min (70-130); Calcium 8.9 mg/dL (7.8-10.44); Carbon Dioxide 28 mmol/L (22-29); Chloride 103 mmol/L (98-107); Estimated GFR-MDRD Greater than 90; Glucose 183 mg/dL (70-105); Potassium 4.1 mmol/L (3.5-5.1); Sodium 137 mmol/L (136-145)
[2018-11-19] MEDS: Acetaminophen 325 MG TAB PO PRN (08:31)
--- NOTE | 2018-11-19 11:16 | NM ---
EXAM: NM Cardiac Stress W EF WF PROVIDED CLINICAL HISTORY: Chest pain COMPARISON: None RADIOPHARMACEUTICAL: 31.7 millicuries technetium 99m labeled sestamibi IV stress 29.4 millicuries technetium 99m labeled sestamibi IV rest FINDINGS: There is normal, homogeneous distribution of radiotracer throughout the left ventricular myocardium. Gated data demonstrate normal myocardial wall motion and thickening with calculated LVEF 69%. Calculated TID is 0.83. IMPRESSION: 1. No scintigraphic evidence for ischemia. 2. Calculated LVEF 69%.
[2018-11-19 12:07] VITALS: BP 168/89
[2018-11-19] MEDS ORDERED: Cefdinir 300 MG CAP PO SCH ×2 (12:15→21:00)
--- NOTE | 2018-11-19 22:07 | DIS ---
DATE OF ADMISSION: 11/17/2018 DATE OF DISCHARGE: 11/19/2018 DISCHARGE DIAGNOSES: 1. Sepsis. 2. Urinary tract infection. 3. Chest pain. 4. Diabetes. 5. Obesity. HOSPITAL COURSE: The patient is a 43-year-old female, who initially presented to the hospital on 11/18, with complaints of lightheadedness, weakness, and tachycardia. On evaluation, she was found to have a UTI. She was hydrated with IV fluids. Also, her D-dimer was elevated, so she underwent a CTA, which did not indicate any acute PE. The patient given history of diabetes, obesity, and hypertension, she underwent a nuclear stress test, which was normal. Her EF was 69%. The patient's urine indicated Escherichia coli, which was pansensitive. She has been transitioned from IV to oral antibiotics. The patient will be discharged home. She will follow up with her primary care. HOME MEDICATIONS: Her home medications will be as of the following; 1. Cefdinir 300 mg b.i.d. 2. Amitriptyline 25 mg at bedtime. 3. Aspirin 81 mg daily. 4. Lasix 20 mg daily. 5. Lisinopril/hydrochlorothiazide 1 p.o. daily. 6. Paroxetine 20 mg q.a.m. 7. Protonix 40 mg daily. 8. Effient 10 mg q.a.m. 9. Lyrica 100 mg b.i.d. 10. Glipizide 10 mg b.i.d. 11. Metformin 1000 mg b.i.d. PHYSICAL EXAMINATION: VITAL SIGNS: Temperature 97.7, pulse 88, respiratory rate 16, O2 saturation 94% on room air, blood pressure 168/89. GENERAL: She is awake, alert, and oriented x3. Does not appear in distress. CV: S1, S2 present. No murmurs, rubs, or gallops. ABDOMEN: Soft, nontender. Bowel sounds are present x2. Again, she will be discharged home. She will follow up with her primary. Job ID: [id number]
--- NOTE | 2018-11-19 22:33 | EKG ---
Test Reason : Blood Pressure : / mmHG Vent. Rate : 104 BPM Atrial Rate : 104 BPM P-R Int : 162 ms QRS Dur : 098 ms QT Int : 352 ms P-R-T Axes : 046 053 003 degrees QTc Int : 462 ms Sinus tachycardia Otherwise normal ECG Confirmed by HUGH FENTON, EMILY Tolliver ([id number]), editor at large JENNIFER KNUTSON ([id number]) on 11/19/2018 10:32:43 PM Referred By: Confirmed By:EMILY REESE MD
== END 2018-11-19 13:08 | disposition home or self-care (01) ==
LOC: ERS 17:01 → 2SW 22:30
PROVIDERS: ADMIT Hospitalist; ATTEND Hospitalist
DX: A41.9 Sepsis, unspecified organism (principal); N39.0 Urinary tract infection, site not specified; B96.20 Unspecified Escherichia coli [E. coli] as the cause of diseases classified elsewhere; E11.9 Type 2 diabetes mellitus without complications; I25.10 Atherosclerotic heart disease of native coronary artery without angina pectoris; I25.2 Old myocardial infarction; I10 Essential (primary) hypertension; E66.01 Morbid (severe) obesity due to excess calories; Z68.41 Body mass index [BMI] 40.0-44.9, adult; Z79.4 Long term (current) use of insulin; Z79.82 Long term (current) use of aspirin; Z79.899 Other long term (current) drug therapy; Z88.0 Allergy status to penicillin; Z88.2 Allergy status to sulfonamides; Z95.5 Presence of coronary angioplasty implant and graft
CPT/HCPCS: 36415; 36416; 71046; 71275; 78452; 80048; 80053; 81003; 81015; 82607; 82746; 83605; 83735; 83880; 84443; 84484; 85025; 85379; 87077; 87086; 87186; 87633; 93005; 93017; 93306; 96361; 96365; 96366; 96375; A9500; G0378; J0153; J0696; J1815; J2405; J3490; J8597; Q0162; Q9967

== ENCOUNTER 2019-01-06 08:41 | Outpatient (CLI) | payer BC ==
--- NOTE | 2019-01-06 10:35 | RAD ---
LEFT SHOULDER 3 VIEWS: Date: 01/06/19 HISTORY: Left shoulder pain. FINDINGS/IMPRESSION: No fracture, dislocation, or bony destruction seen. A small calcific density close to the insertion o f the rotator cuff may represent calcific tendinosis. POS: [facility]
== END 2019-01-06 08:42 | disposition home or self-care (01) ==
LOC: RAD-FRANK 08:41
PROVIDERS: ATTEND Nurse Practitioner Family
DX: M25.512 Pain in left shoulder (principal)

== ENCOUNTER 2019-05-22 04:13 | Emergency (ER) | payer BC ==
[2019-05-22] MEDS ORDERED: Ondansetron ODT 4 MG TAB ONE (06:15)
[2019-05-22] MEDS ORDERED: Oxymetazoline HCl 0.05% (30 ML BOT) ONE (06:15)
[2019-05-22] MEDS ORDERED: HYDROcodone/Acetaminophen 5/325 mg Tablet ONE (07:17)
== END 2019-05-22 07:40 | disposition home or self-care (01) ==
LOC: ERS 04:13
DX: R04.0 Epistaxis (principal); E11.9 Type 2 diabetes mellitus without complications; I10 Essential (primary) hypertension; F41.9 Anxiety disorder, unspecified; Z79.899 Other long term (current) drug therapy; Z79.4 Long term (current) use of insulin
CPT/HCPCS: 30903; Q0162

== ENCOUNTER 2019-10-14 22:36 | Observation (INO) | payer BC, OTHER ==
[2019-10-14 23:05] LABS: #Eosinphils 0.3 thou/uL (0.0-0.7); #Lymphocytes 3.8 thou/uL (1.20-3.40); #Monocytes 0.4 thou/uL (0.11-0.59); #Neutrophils 5.4 thou/uL (1.40-6.50); %Basophils 0.3 % (0.0-1.0); %Eosinophils 3.4 % (0.0-10.0); %Lymphocytes 37.8 % (21.0-51.0); %Monocytes 4.5 % (0.0-10.0); %Neutrophils 54.2 % (42.0-75.0); Mean Corpuscular HGB CONC 33.8 g/dL (32.0-36.0); Mean Corpuscular Hemoglobin 29.2 pg (27.0-31.0); Mean Corpuscular Volume 86.5 fL (78.0-98.0); Mean Platelet Volume 7.5 fL (7.4-10.4); Platelet Count 262 thou/uL (130-400); RBC Distribution Width 13.4 % (11.5-14.5); Red Blood Cell (RBC) Count 4.46 mill/uL (4.20-5.40); White Blood Cell (WBC) Count 9.9 thou/uL (4.8-10.8)
--- NOTE | 2019-10-14 23:06 | RAD ---
EXAM: Single view of the chest HISTORY: Abdominal pain with nausea and vomiting COMPARISON: 02/15/2017 FINDINGS: Single view of the chest shows an enlarged but stable cardiomediastinal silhouette. There i s no evidence of consolidation, mass, or pleural effusion. The bones are unremarkable IMPRESSION: No evidence of acute cardiopulmonary disease
[2019-10-14 23:25] LABS: ALT (SGPT) 36 U/L (8-55); AST (SGOT) 35 U/L (5-34); Alkaline Phosphatase 99 U/L (40-110); Anion Gap 12 mmol/L (10-20); BUN (Urea Nitrogen) 11 mg/dL (7.0-18.7); Bilirubin, Total 0.3 mg/dL (0.2-1.2); Calc. Creatinine Clearance 0 mL/min (70-130); Calcium 9.4 mg/dL (7.8-10.44); Carbon Dioxide 29 mmol/L (22-29); Chloride 98 mmol/L (98-107); Estimated GFR-MDRD 86; Globulin 3.3 g/dL (2.4-3.5); Glucose 161 mg/dL (70-105); Lipase 63 U/L (8-78); Potassium 3.6 mmol/L (3.5-5.1); Protein, Total 7.3 g/dL (6.0-8.3); Sodium 135 mmol/L (136-145)
[2019-10-15] MEDS ORDERED: Ondansetron PF 4 MG/2 ML Vial ONE (00:17)
[2019-10-15] MEDS ORDERED: Aspirin Chewable 81 MG TAB ONE (00:19)
[2019-10-15] MEDS ORDERED: Acetaminophen 500 MG TAB ONE (00:24)
[2019-10-15] MEDS ORDERED: Nitroglycerin 2% Ointment 1 INCH/1 GM Packet ONE (00:24)
[2019-10-15] MEDS ORDERED: Senokot S 8.6-50 MG TAB PO PRN (02:07)
[2019-10-15] MEDS ORDERED: Acetaminophen 325 MG TAB PO PRN (02:07)
[2019-10-15] MEDS ORDERED: HumaLOG 300 UNITS/3 ML VIAL SC PRN (02:09)
[2019-10-15] MEDS ORDERED: Dextrose 5% in Water 1,000 ML IV PRN (02:09)
[2019-10-15] MEDS ORDERED: Dextrose 50% Abboject 50 ML SYRINGE SLOW IVP PRN (02:09)
[2019-10-15 02:21] LABS: Troponin I Less than 0.010 ng/mL (< 0.028)
[2019-10-15 02:33] LABS: SARS-CoV-2 NAA Rapid Test Not Detected (NotDetected)
[2019-10-15] MEDS ORDERED: Promethazine HCl 25 MG/ML VIAL IM/IV PRN (03:55)
[2019-10-15] MEDS ORDERED: Promethazine HCl 25 MG/ML VIAL ONE (04:40)
--- NOTE | 2019-10-15 05:12 | HP ---
PRIMARY CARE PHYSICIAN: Monica Hernandez CHIEF COMPLAINT: Chest pain. HISTORY OF PRESENT ILLNESS: Ms. Mae is a 44-year-old female who reported to the emergency room today with central chest pain for the last 3 days. She reports a little bit of shortness of breath, but denies any injury, syncope, or palpitations. She has a history of CAD with stents. Dr. Paz is her tour escort. She took some aspirin at home prior to arrival. She also reports she has also had the same duration of pain in her abdomen all over. She reports it is diffuse with some significant nausea and vomiting. She denies any fever or ill contacts. 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 She denies any dysuria. She does have a history of cholecystectomy, appendectomy, hysterectomy. She was admitted almost a year ago in November of 2018 for similar. She had a workup including a stress test which was negative. She denies any changes to her medical history since that time. She reports that chest pain is a little bit relieved after the nitroglycerin, but that the nausea is still there and says that the Zofran they gave her in the emergency room is really not helping. She will be admitted to the telemetry unit for further management. PAST MEDICAL HISTORY: Diabetes type 2, hypertension, coronary artery disease. She had an ME in 2017, obesity. PAST SURGICAL HISTORY: 1. Bilateral hand surgery. 2. Right shoulder surgery. 3. Right knee surgery. 4. Uvula removed. 5. Hysterectomy. 6. Appendectomy. 7. Cholecystectomy. 8. Tonsillectomy. 9. Low back surgery in 2014. 10. Heart stent x1 in July of 2016. SOCIAL HISTORY: She lives at home with her family. She denies any alcohol, drug use or smoking history. ALLERGIES: AMOXICILLIN AND SULFA. CURRENT MEDICATIONS: Per the ER system, it still needs to be verified. 1. Lisinopril-hydrochlorothiazide. 2. Metformin. 3. Glipizide. 4. Victoza. 5. Lyrica. 6. Novolin. 7. Effient. 8. Paxil. 9. Amitriptyline. 10. Levemir. 11. Aspirin. REVIEW OF SYSTEMS: The patient reports chest pain. Reports abdominal pain which is all over. Denies any focal abdominal pain. Reports some nausea. Reports vomiting. Reports diarrhea. PHYSICAL EXAMINATION: VITAL SIGNS: Blood pressure 134/75, pulse is 84, respiratory rate is 18, temperature is 98.2, pO2 sats are 98% on room air. CONSTITUTIONAL: The patient appears in mild pain discomfort. She is alert and oriented to person, place and time. HEENT: Head is atraumatic and normocephalic. Eyes, pupils are equally round and reactive to light. NECK: Normal range of motion. Trachea is midline. RESPIRATORY: Chest, no any signs of her respiratory distress. Breath sounds are clear. CARDIOVASCULAR: Regular rate and rhythm. Heart sounds are normal. ABDOMEN: Bowel sounds are heard. She has some mild epigastric pain on palpation. There is no rebound, no guarding. EXTREMITIES: Upper extremity, normal range of motion. Motor strength is normal. Radial pulses are normal. Lower extremity, normal range of motion. Motor strength is normal. Pedal pulses are normal. There is no edema. NEUROLOGIC: The patient is oriented to person, place, and time. Speech is normal. SKIN: Warm, dry, normal in color. LABORATORY DATA: Troponin x1 is negative. Sodium is low at 135, glucose at 161, AST at 35. D-dimer is negative. CBC is unremarkable. DIAGNOSTIC DATA: Chest x-ray shows no evidence of acute cardiopulmonary process. PLAN/ASSESSMENT: 1. Chest pain. We will trend troponins. We will get a fasting lipid and TSH level. The patient has nitroglycerin on her chest, which she says relieves her pain to some degree. She had a negative stress test less than a year ago. We will assess the troponins once completed to dictate next steps. 2. Diffuse abdominal pain with nausea, vomiting. She reports that the Zofran did not help, so we have added some Phenergan 12.5 mg x1 to see if that improves it. We will order a CT scan of the abdomen and pelvis to make sure that there is no pathology that would account for her pain. 3. History of hypertension. We will restart her home medications. 4. History of diabetes, type 2. Accu-Cheks before meals and at bedtime. Insulin for coverage. We will restart her home medications once reconciled. 5. History of hyperlipidemia. We will check lipids, but we will restart her statin once reconciled. 6. Discussed with Dr. Bartlett who agrees with plan. 7. Deep venous thrombosis and gastrointestinal prophylaxis started. 8. Hospital course dependent on clinical findings. Job ID: [id number]
[2019-10-15 05:50] LABS: #Basophils 0.1 thou/uL (0.0-0.2); #Eosinphils 0.3 thou/uL (0.0-0.7); #Lymphocytes 3.6 thou/uL (1.20-3.40); #Monocytes 0.5 thou/uL (0.11-0.59); #Neutrophils 5.3 thou/uL (1.40-6.50); %Basophils 0.6 % (0.0-1.0); %Monocytes 5.1 % (0.0-10.0); %Neutrophils 54.2 % (42.0-75.0); Hemoglobin 11.5 g/dL (12.0-16.0); Mean Corpuscular HGB CONC 32.3 g/dL (32.0-36.0); Mean Corpuscular Hemoglobin 27.8 pg (27.0-31.0); Mean Corpuscular Volume 85.9 fL (78.0-98.0); Mean Platelet Volume 7.8 fL (7.4-10.4); Platelet Count 259 thou/uL (130-400); RBC Distribution Width 13.3 % (11.5-14.5); Red Blood Cell (RBC) Count 4.13 mill/uL (4.20-5.40); White Blood Cell (WBC) Count 9.8 thou/uL (4.8-10.8)
[2019-10-15 06:26] LABS: Troponin I 0.012 ng/mL (< 0.028)
[2019-10-15 06:28] LABS: ALT (SGPT) 35 U/L (8-55); AST (SGOT) 33 U/L (5-34); Albumin 3.4 g/dL (3.5-5.0); Alkaline Phosphatase 86 U/L (40-110); Anion Gap 11 mmol/L (10-20); BUN (Urea Nitrogen) 11 mg/dL (7.0-18.7); Bilirubin, Total 0.2 mg/dL (0.2-1.2); Calc. Creatinine Clearance 0 mL/min (70-130); Calcium 9.3 mg/dL (7.8-10.44); Carbon Dioxide 26 mmol/L (22-29); Cardiac Risk 5.2 (Less than 4.5); Chloride 100 mmol/L (98-107); Cholesterol 188 mg/dl (< 200 Desired); Estimated GFR-MDRD Greater than 90; Globulin 2.9 g/dL (2.4-3.5); Glucose 170 mg/dL (70-105); HDL Cholesterol 36 mg/dL (>60 Neg Risk); Magnesium 1.2 mg/dL (1.6-2.6); Potassium 3.7 mmol/L (3.5-5.1); Protein, Total 6.3 g/dL (6.0-8.3); Sodium 133 mmol/L (136-145); Triglycerides 542 mg/dL (Less than 150)
[2019-10-15] MEDS ORDERED: Cyclobenzaprine 10 MG TAB PO PRN (08:24)
[2019-10-15] MEDS ORDERED: Acetaminophen/Codeine 30-300mg Tablet PO PRN (08:24)
[2019-10-15] MEDS ORDERED: Enoxaparin Sodium 40 MG/0.4 ML SYRINGE ONE (08:24)
[2019-10-15] MEDS ORDERED: Bisacodyl 10 MG SUPP PR PRN (08:26)
[2019-10-15] MEDS ORDERED: Calcium Carbonate 500 MG ChewTAB PO PRN (08:26)
[2019-10-15] MEDS ORDERED: Loratadine 10 MG TAB PO PRN (08:26)
[2019-10-15] MEDS ORDERED: Acetaminophen 325 MG TAB ONE (08:26)
[2019-10-15] MEDS ORDERED: Diabetic Tussin 200 MG/10 ML UDCUP PO PRN (08:26)
[2019-10-15] MEDS ORDERED: Zolpidem Tartrate 5 MG TAB PO PRN (08:26)
[2019-10-15] MEDS ORDERED: Cepastat Lozenges 1 LOZ PO PRN (08:26)
[2019-10-15] MEDS ORDERED: Bisacodyl 5 MG TAB PO PRN (08:26)
[2019-10-15] MEDS ORDERED: Loperamide HCl 2 MG CAP PO PRN (08:26)
[2019-10-15] MEDS ORDERED: hydrALAZINE 20 MG/ML VIAL SLOW IVP PRN (08:26)
[2019-10-15] MEDS ORDERED: Ondansetron PF 4 MG/2 ML Vial IVP PRN (08:26)
[2019-10-15] MEDS ORDERED: Famotidine 20 MG TAB ONE (08:26)
[2019-10-15] MEDS ORDERED: HumaLOG 300 UNITS/3 ML VIAL ONE (08:26)
[2019-10-15] MEDS ORDERED: Ondansetron ODT 4 MG TAB PO PRN (08:26)
[2019-10-15] MEDS ORDERED: Sodium Chloride 0.65% Nasal 44 ML BOT EA NARE PRN (08:26)
[2019-10-15] MEDS ORDERED: Magnesium Sulfate 3 GM in Sodium Chloride 0.9% 100 ML IVPB SCH (08:30)
--- NOTE | 2019-10-15 08:32 | CT ---
PRELIMINARY REPORT/[facility]/EMERGENCY AFTER HOURS PROCEDURE: EXAM: CT Abdomen and Pelvis with Intravenous Contrast CLINICAL HISTORY: Pt reports central chest pain X 2 hrs. Denies dyspnea, injury, syncope, or palpitations. Pt has histo ry of CAD with stents. 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 No alleviating or aggravating factors. Took ASA 81mg PO at home. Pt states she has also had abd pain with n/v X 3 days. Denies fever or ill contac ts. No urinary symptoms. History of Cholecystectomy, appendectomy, and hysterectomy. TECHNIQUE: Axial computed tomography images of the abdomen and pelvis with intravenous contrast. CONTRAST: With; ISOVUE 370,100mL COMPARISON: None provided. FINDINGS: LUNG BASES: No basilar airspace consolidation or pleural effusion. LIVER: Diffuse hepatic steatosis. GALLBLADDER AND BILE DUCTS: Status post cholecystectomy. PANCREAS: Unremarkable. SPLEEN: Unremarkable. ADRENAL GLANDS: Unremarkable. KIDNEYS, URETERS, AND BLADDER: Unremarkable. No hydronephrosis or nephrolithiasis. No ureteral or bladder calculi. STOMACH AND BOWEL: No obstruction. No wall thickening. No CT evidence of colitis or acute diverticulitis. APPENDIX: Status post appendectomy. PERITONEUM: No free fluid. No free air. LYMPH NODES: No lymphadenopathy. REPRODUCTIVE: Status post hysterectomy. 4.1 cm right ovarian cyst. VASCULATURE: No aortic aneurysm. BONES: Chronic grade 1 anterolisthesis of L5 on S1, status post surgical fixation. Mild degenerative changes of the spine. ABDOMINAL WALL AND SOFT TISSUES: Unremarkable. IMPRESSION: No acute intra-abdominal or pelvic abnormality. ELECTRONICALLY SIGNED BY: Belén Clemens MD Oct 15, 2019 5:41:37 AM CDT This report is intended for review by the ordering physician only, in accordance of law. If you recei ve this report in error, please call [facility] at [phone]. FINAL REPORT EMERGENCY AFTER HOURS CT ABDOMEN AND PELVIS: IMPRESSION: I agree with the preliminary interpretation given by [facility] regarding the absence of an acu te process. 4.1 cm right adnexal cystic structure is demonstrated, which appears enlarged with respec t to 07/03/2014, at which time it measured about 3.4 cm. The significance of this finding is uncertai n given the minimal interval growth over the time period specified. Nonemergent pelvic ultrasound is recommended. CODE T. POS: [facility]
[2019-10-15] MEDS: HumaLOG 300 UNITS/3 ML VIAL SC PRN ×3 (08:58→18:02)
[2019-10-15 08:59] LABS: Bacteria/HPF None Seen HPF (None Seen); Bilirubin Negative (Negative); Blood, Urine Trace (Negative); Clarity Clear (Clear); Glucose, Urine (Dipstick) Normal (Negative); Ketone, Urine Negative (Negative); Leukocyte Negative Leu/uL (Negative); Nitrite Negative (Negative); Protein, Urine (Dipstick) Negative (Neg-Trace); RBC/HPF 0-3 HPF (0-3); Specific Gravity, Urine 1.039 (1.002-1.036); Squamous Epithelial 0-3 HPF (0-3); Urobilinogen Normal mg/dL (Less than 2); WBC/HPF 0-3 HPF (0-3)
[2019-10-15] MEDS ORDERED: Enoxaparin Sodium 40 MG/0.4 ML SYRINGE SC SCH (09:00)
[2019-10-15] MEDS ORDERED: Famotidine 20 MG TAB PO SCH (09:00)
[2019-10-15 09:06] LABS: Urine Culture Reflex No No
[2019-10-15] MEDS: Aspirin Chewable 81 MG TAB PO SCH (10:01)
[2019-10-15] MEDS ORDERED: Iopamidol-370 76% 500 ML 1 ML ONE (12:03)
[2019-10-15] MEDS: Cholecalciferol 1,000 UNITS (25 MCG) TAB PO SCH (12:10)
[2019-10-15] MEDS: PARoxetine 20 MG TAB PO SCH (12:10)
[2019-10-15] MEDS: Pregabalin 50 MG CAP PO SCH ×2 (12:10→21:57)
[2019-10-15] MEDS: Fenofibrate Nanocrystallized 145 MG TAB PO SCH (12:11)
[2019-10-15] MEDS: Lisinopril/Hydrochlorothiazide 20/25 mg Tablet PO SCH (12:11)
[2019-10-15] MEDS: Prasugrel 10 MG TAB PO SCH (12:13)
--- NOTE | 2019-10-15 12:32 | PDOC.HOSPP ---
- Subjective Encounter Date: 10/15/19 Encounter Time: 10:30 Subjective: Patient seen and examined. No new complaints. No overnight events - Objective Vital Signs & Weight: Vital Signs (12 hours) Pulse BP 10/15/19 12:11 90 110/81 Result Diagrams: 10/15/19 05:38 10/15/19 05:38 Additional Labs: Accuchecks 10/15/19 10/15/19 11:34 08:23 POC Glucose 187 H 151 H Radiology Reviewed by me: Yes EKG Reviewed by me: Yes Hospitalist ROS - Review of Systems Eyes: denies: pain, vision change, conjunctivae inflammation, eyelid inflammation, redness, other ENT: denies: ear pain, ear discharge, nose pain, nose discharge, nose congestion , mouth pain, mouth swelling, throat pain, throat swelling, other Respiratory: denies: cough, dry, shortness of breath, hemoptysis, SOB with excertion, pleuritic pain, sputum, wheezing, other Cardiovascular: denies: chest pain, palpitations, orthopnea, paroxysmal noc. dyspnea, edema, light headedness, other Gastrointestinal: denies: nausea, vomiting, abdominal pain, diarrhea, constipation, melena, hematochezia, other Genitourinary: denies: dysuria, frequency, incontinence, hematuria, retention, other Musculoskeletal: denies: neck pain, shoulder pain, arm pain, back pain, hand pain, leg pain, foot pain, other Skin: denies: rash, lesions, lakesha, bruising, other - Medication Medications: Active Medications Generic Name Dose Route Start Last Admin Trade Name Freq PRN Reason Stop Dose Admin Acetaminophen 650 mg 10/15/19 02:07 10/15/19 08:58 Tylenol PO 650 mg Q4H PRN Administration Headache/Fever/Mild Pain (1-3) Aspirin 81 mg 10/15/19 09:00 10/15/19 10:01 Aspirin Chewable PO Not Given DAILY [facility] Cholecalciferol 3,000 units 10/16/19 09:00 10/15/19 12:10 Vitamin D3 PO 3,000 units DAILY TRACEY Administration Enoxaparin Sodium 40 mg 10/15/19 09:00 10/15/19 08:57 Lovenox SC 40 mg 0900 TRACEY Administration Fenofibrate 145 mg 10/15/19 09:00 10/15/19 12:11 Tricor PO 145 mg DAILY TRACEY Administration Glipizide 10 mg 10/15/19 09:00 10/15/19 11:30 Glucotrol Xl PO 10 mg BID TRACEY Administration Lisinopril/HCTZ 1 tab 10/15/19 09:00 10/15/19 12:11 Prinizide 20-25 PO 1 tab DAILY TRACEY Administration Insulin Human Lispro 0 units 10/15/19 02:09 10/15/19 11:40 Humalog SC 2 unit .MILD SLIDING SCALE PRN Administration Mild Correctional Scale Pantoprazole Sodium 40 mg 10/15/19 09:00 10/15/19 10:03 Protonix PO Not Given DAILY TRACEY Paroxetine HCl 40 mg 10/16/19 09:00 10/15/19 12:10 Paxil PO 40 mg DAILY TRACEY Administration Prasugrel 10 mg 10/15/19 09:00 10/15/19 12:13 Effient PO 10 mg QAM TRACEY Administration Pregabalin 100 mg 10/15/19 21:00 10/15/19 12:10 Lyrica PO 100 mg BID TRACEY Administration - Exam General Appearance: NAD, awake alert Eye: PERRL, anicteric sclera ENT: normocephalic atraumatic, no oropharyngeal lesions Neck: supple, symmetric, no JVD, no thyromegaly Heart: RRR, no murmur, no gallops, no rubs, normal peripheral pulses Respiratory: CTAB, no wheezes, no rales, no ronchi Gastrointestinal: soft, non-tender, non-distended, normal bowel sounds Extremities: no cyanosis, no clubbing, no edema Skin: normal turgor, no lesions Neurological: no focal deficits Musculoskeletal: normal tone, normal strength Psychiatric: normal affect, normal behavior Hosp A/P - Plan old records reviewed/req Assessment Chest pain ruled out acute coronary syndrome Abdominal pain likely due to fatty liver Hypomagnesemia Morbid obesity Hypertriglyceridemia Anxiety and depression Chronic low back pain Diabetes type 2 Hypertension Gastroesophageal reflux disease Peripheral neuropathy Plan Chest x-ray normal, CT abdomen and pelvis is only showing fatty liver, patient had echocardiography in November 2018 which showed normal EF, patient also had a stress test in November 2018 which was normal. Her d-dimer is negative and in the past patient had negative CT angiography. Patient is currently asymptomatic. Cardiac enzymes are negative. Will replace magnesium sulfate 3 g , will start TriCor 145 mg p.o. daily
[2019-10-15 15:09] VITALS: BMI 45.8
[2019-10-15] MEDS ORDERED: Insulin Glargine 10 UNITS in Pre-Filled Syringe 1 EACH SC SCH (21:00)
[2019-10-15] MEDS ORDERED: Non-Formulary Item 1 EACH (Insulin Detemir 100 Units/Ml [Levemir] 20 UNITS) SQ SCH (21:00)
[2019-10-15] MEDS ORDERED: Amitriptyline HCl 25 MG TAB PO SCH (21:00)
[2019-10-15] MEDS ORDERED: Insulin Glargine 20 UNITS in Pre-Filled Syringe 1 EACH SC SCH (21:00)
[2019-10-16 05:42] LABS: Anion Gap 11 mmol/L (10-20); BUN (Urea Nitrogen) 8 mg/dL (7.0-18.7); Calc. Creatinine Clearance 206 mL/min (70-130); Calcium 9.4 mg/dL (7.8-10.44); Carbon Dioxide 31 mmol/L (22-29); Chloride 97 mmol/L (98-107); Estimated GFR-MDRD Greater than 90; Glucose 190 mg/dL (70-105); Magnesium 1.5 mg/dL (1.6-2.6); Sodium 135 mmol/L (136-145)
[2019-10-16] MEDS: HumaLOG 300 UNITS/3 ML VIAL SC PRN (06:41)
[2019-10-16 07:13] VITALS: BP 144/80; TEMP 97.7
[2019-10-16] MEDS ORDERED: Magnesium Sulfate 3 GM in Sodium Chloride 0.9% 100 ML IVPB SCH (07:30)
[2019-10-16] MEDS: Lisinopril/Hydrochlorothiazide 20/25 mg Tablet PO SCH (08:33)
[2019-10-16] MEDS: Fenofibrate Nanocrystallized 145 MG TAB PO SCH (08:34)
[2019-10-16] MEDS: Prasugrel 10 MG TAB PO SCH (08:34)
[2019-10-16] MEDS: Cholecalciferol 1,000 UNITS (25 MCG) TAB PO SCH (08:34)
[2019-10-16] MEDS: Pregabalin 50 MG CAP PO SCH (08:34)
[2019-10-16] MEDS: Aspirin Chewable 81 MG TAB PO SCH (08:35)
[2019-10-16] MEDS: PARoxetine 20 MG TAB PO SCH (08:35)
--- NOTE | 2019-10-16 11:04 | PDOC.HOSPP ---
- Subjective Encounter Date: 10/16/19 Encounter Time: 08:30 Subjective: Patient seen and examined. No new complaints. No overnight events - Objective Vital Signs & Weight: Vital Signs (12 hours) Temp Pulse Resp BP Pulse Ox 10/16/19 07:09 97.7 F 88 18 144/80 H 92 L 10/16/19 03:51 98 F 86 12 135/61 93 L Weight Weight 276 lb 3.2 oz I&O: 10/15/19 10/16/19 10/17/19 06:59 06:59 06:59 Intake Total 360 Balance 360 Result Diagrams: 10/15/19 05:38 10/16/19 04:57 Additional Labs: Accuchecks 10/16/19 10/15/19 10/15/19 06:18 21:05 16:38 POC Glucose 203 H 251 H 307 H 10/15/19 11:34 POC Glucose 187 H EKG Reviewed by me: Yes Hospitalist ROS - Review of Systems ENT: denies: ear pain, ear discharge, nose pain, nose discharge, nose congestion , mouth pain, mouth swelling, throat pain, throat swelling, other Respiratory: denies: cough, dry, shortness of breath, hemoptysis, SOB with excertion, pleuritic pain, sputum, wheezing, other Cardiovascular: denies: chest pain, palpitations, orthopnea, paroxysmal noc. dyspnea, edema, light headedness, other Gastrointestinal: denies: nausea, vomiting, abdominal pain, diarrhea, constipation, melena, hematochezia, other Genitourinary: denies: dysuria, frequency, incontinence, hematuria, retention, other Musculoskeletal: denies: neck pain, shoulder pain, arm pain, back pain, hand pain, leg pain, foot pain, other - Medication Medications: Active Medications Generic Name Dose Route Start Last Admin Trade Name Freq PRN Reason Stop Dose Admin Acetaminophen 650 mg 10/15/19 02:07 10/15/19 08:58 Tylenol PO 650 mg Q4H PRN Administration Headache/Fever/Mild Pain (1-3) Amitriptyline HCl 25 mg 10/15/19 21:00 10/15/19 21:58 Elavil PO 25 mg HS TRACEY Administration Aspirin 81 mg 10/15/19 09:00 10/16/19 08:35 Aspirin Chewable PO 81 mg DAILY TRACEY Administration Cholecalciferol 3,000 units 10/16/19 09:00 10/16/19 08:34 Vitamin D3 PO 3,000 units DAILY TRACEY Administration Fenofibrate 145 mg 10/15/19 09:00 10/16/19 08:34 Tricor PO 145 mg DAILY TRACEY Administration Glipizide 10 mg 10/15/19 09:00 10/16/19 08:33 Glucotrol Xl PO 10 mg BID TRACEY Administration Lisinopril/HCTZ 1 tab 10/15/19 09:00 10/16/19 08:33 Prinizide 20-25 PO 1 tab DAILY TRACEY Administration Insulin Glargine 10 units/ 0.1 mls @ 0 mls/hr 10/15/19 21:00 10/15/19 21:59 Miscellaneous Medication SC 0.1 mls HS TRACEY Administration Insulin Human Lispro 0 units 10/15/19 02:09 10/16/19 06:41 Humalog SC 3 unit .MILD SLIDING SCALE PRN Administration Mild Correctional Scale Insulin Human Lispro 0 units 10/15/19 02:09 10/15/19 21:59 Humalog SC 3 unit .BEDTIME SLIDING SC PRN Administration Bedtime Correctional Scale Pantoprazole Sodium 40 mg 10/15/19 09:00 10/16/19 08:34 Protonix PO 40 mg DAILY TRACEY Administration Paroxetine HCl 40 mg 10/16/19 09:00 10/16/19 08:35 Paxil PO 40 mg DAILY TRACEY Administration Prasugrel 10 mg 10/15/19 09:00 10/16/19 08:34 Effient PO 10 mg QAM TRACEY Administration Pregabalin 100 mg 10/15/19 21:00 10/16/19 08:34 Lyrica PO 100 mg BID TRACEY Administration - Exam General Appearance: NAD, awake alert Eye: PERRL, anicteric sclera ENT: normocephalic atraumatic, no oropharyngeal lesions Neck: supple, symmetric, no JVD, no thyromegaly Heart: RRR, no murmur, no gallops, no rubs Respiratory: CTAB, no wheezes, no rales, no ronchi Gastrointestinal: soft, non-tender, non-distended, normal bowel sounds Extremities: no cyanosis, no clubbing, no edema Skin: normal turgor, no lesions Neurological: no focal deficits Musculoskeletal: normal tone, normal strength Psychiatric: normal affect, normal behavior Hosp A/P - Plan old records reviewed/req Assessment Chest pain ruled out acute coronary syndrome Abdominal pain likely due to fatty liver Hypomagnesemia Morbid obesity Hypertriglyceridemia Anxiety and depression Chronic low back pain Diabetes type 2 Hypertension Gastroesophageal reflux disease Peripheral neuropathy Plan Cardiac etiology has been ruled out, Today we will replace magnesium sulfate We will consider discharging her home later on today
--- NOTE | 2019-10-16 12:06 | DIS ---
DATE OF ADMISSION: 10/15/2019 DATE OF DISCHARGE: 10/16/2019 PRIMARY CARE PHYSICIAN: [facility] Nurse practitioner. DISCHARGE DISPOSITION: Home. PRIMARY DISCHARGE DIAGNOSES: 1. Chest pain, ruled out acute coronary syndrome. 2. Hypomagnesemia, replaced. SECONDARY DISCHARGE DIAGNOSES: 1. Anxiety and depression. 2. Morbid obesity with body mass index 45. 3. Diabetes type 2. 4. Hypertension. 5. Gastroesophageal reflux disease. 6. Dyslipidemia. PRIMARY PROCEDURE/OPERATION: None. RADIOLOGIST INVESTIGATION: 1. Chest x-ray normal. 2. Abdomen and pelvis CT scan was unremarkable. SIGNIFICANT LABORATORY DATA: COVID-19 negative. Urinalysis normal. Sodium 135, potassium 4.0, BUN 8, creatinine 0.69, magnesium 1.5. Triglyceride 542. D-dimer is 0.36. CBC; WBC 9.8, hemoglobin 11.5, platelet 259. DISCHARGE MEDICATION: 1. Tylenol No.3 one tablet q.6 hourly p.r.n. 2. Amitriptyline 25 mg p.o. at bedtime. 3. Aspirin 81 mg daily. 4. Vitamin D3 3000 units p.o. daily. 5. Flexeril 10 mg t.i.d. p.r.n. 6. Lasix 20 mg daily. 7. Glipizide ER 10 mg p.o. b.i.d. 8. Humulin R 15 units subcu before meals and at bedtime. 9. Levemir insulin 20 units subcu at bedtime. 10. Victoza 1.2 mg subcu daily. 11. Prinzide 20/25 one tablet daily. 12. Metformin ER 1000 mg p.o. b.i.d. 13. Protonix 40 mg p.o. daily. 14. Paroxetine 40 mg p.o. daily. 15. Effient 10 mg p.o. daily. 16. Lyrica 100 mg p.o. twice daily. 17. Tricor 145 mg p.o. daily. 18. Magnesium oxide 400 mg p.o. daily. CONTRAINDICATION: None. CODE STATUS: Full code. INPATIENT LUNCH COOK: None. ALLERGY: 1. Amoxicillin. 2. Sulfa drugs. DISCHARGE PLAN: Post hospital, the patient is instructed to follow up with primary care physician in 1 week. HOSPITAL COURSE: A 44-year-old female, who has above-mentioned medical problem and morbid opacity, who came to emergency room for vague chest discomfort. The patient was also having epigastric abdominal discomfort. In the emergency room, chest x-ray was normal. Electrocardiogram was unremarkable. CT abdomen and pelvis did not show any acute process. Her cardiac enzymes were negative and subsequent troponin remained negative. The patient has diffuse fatty liver. This patient was evaluated in the hospital and we found that she has severe hypertriglyceridemia and that is why, we started Tricor therapy. The patient will continue all her previous medication while in hospital. We have also replaced magnesium. All the medication prescription sent to her pharmacy. COVID-19 test came back negative. The patient did not have any arrhythmia on monitor. Troponin remained negative. The patient remained asymptomatic while in hospital. Necessary dietary education given to the patient. The patient is overall medically stable for discharge today. Job ID: [id number]
== END 2019-10-16 11:46 | disposition home or self-care (01) ==
LOC: ERS 22:36 → ERHOLD 10-15 01:14 → 2NO 10-15 14:15
PROVIDERS: ADMIT Internal Medicine; ATTEND Internal Medicine
DX: R07.9 Chest pain, unspecified (principal); E83.42 Hypomagnesemia; I10 Essential (primary) hypertension; E11.9 Type 2 diabetes mellitus without complications; E78.5 Hyperlipidemia, unspecified; E78.1 Pure hyperglyceridemia; F41.9 Anxiety disorder, unspecified; F32.9 Major depressive disorder, single episode, unspecified; K21.9 Gastro-esophageal reflux disease without esophagitis; I25.10 Atherosclerotic heart disease of native coronary artery without angina pectoris; I25.2 Old myocardial infarction; E66.01 Morbid (severe) obesity due to excess calories; Z68.42 Body mass index [BMI] 45.0-49.9, adult; Z79.4 Long term (current) use of insulin; Z79.82 Long term (current) use of aspirin; Z79.899 Other long term (current) drug therapy; Z95.5 Presence of coronary angioplasty implant and graft; Z88.0 Allergy status to penicillin; Z88.2 Allergy status to sulfonamides; Z91.018 Allergy to other foods; Z20.828 Contact with and (suspected) exposure to other viral communicable diseases
CPT/HCPCS: 36415; 36416; 71045; 74177; 80048; 80053; 80061; 81001; 83690; 83735; 84443; 84484; 85025; 85379; 93005; 93010; 96372; 96374; 96375; G0378; J1650; J1815; J2405; J2550; J3475; J3490; Q9967; U0002

== ENCOUNTER 2020-06-25 22:40 | Emergency (ER) | payer BC | END 2020-06-26 01:13 | disposition home or self-care (01) | LOC: ERS 22:40 | DX: S46.911A Strain of unspecified muscle, fascia and tendon at shoulder and upper arm level, right arm, initial encounter (principal); E11.9 Type 2 diabetes mellitus without complications; I10 Essential (primary) hypertension; Z79.899 Other long term (current) drug therapy; Z79.4 Long term (current) use of insulin; Z79.82 Long term (current) use of aspirin; X50.9XXA Other and unspecified overexertion or strenuous movements or postures, initial encounter ==

== ENCOUNTER 2021-07-21 07:26 | Outpatient (CLI) | payer BC | END 2021-07-21 07:27 | disposition home or self-care (01) | LOC: RAD-FRANK 07:26 | PROVIDERS: ATTEND Nurse Practitioner Family | DX: Z13.31 Encounter for screening for depression (principal); S69.92XA Unspecified injury of left wrist, hand and finger(s), initial encounter ==

== ENCOUNTER 2022-11-22 16:53 | Observation (INO) | payer BC ==
[2022-11-22] MEDS ORDERED: Nitroglycerin 0.4 MG TAB 1 EACH ONE (17:23)
[2022-11-22] MEDS ORDERED: Aspirin Chewable 81 MG TAB ONE ×2 (17:23→17:28)
[2022-11-22 17:26] LABS: #Eosinphils 0.3 thou/uL (0.0-0.7); #Monocytes 0.6 thou/uL (0.11-0.59); #Neutrophils 6.6 thou/uL (1.40-6.50); %Basophils 0.3 % (0.0-1.0); %Eosinophils 2.3 % (0.0-10.0); %Lymphocytes 34.4 % (21.0-51.0); %Monocytes 5.2 % (0.0-10.0); %Neutrophils 57.5 % (42.0-75.0); Hematocrit 39.8 % (36.0-47.0); Hemoglobin 13.7 g/dL (12.0-16.0); Mean Corpuscular HGB CONC 34.4 g/dL (32.0-36.0); Mean Corpuscular Volume 84.1 fl (78.0-98.0); Mean Platelet Volume 10.5 fL (7.4-10.4); Platelet Count 233 10x3/uL (130-400); RBC Distribution Width 13.2 % (11.5-14.5); Red Blood Cell (RBC) Count 4.73 mill/uL (4.20-5.40); White Blood Cell (WBC) Count 11.5 10x3/uL (4.8-10.8)
[2022-11-22 17:54] LABS: ALT (SGPT) 35 U/L (8-55); AST (SGOT) 25 U/L (5-34); Albumin 3.8 g/dL (3.5-5.0); Alkaline Phosphatase 126 U/L (40-110); Anion Gap 16 mmol/L (10-20); BUN (Urea Nitrogen) 19 mg/dL (7.0-18.7); Bilirubin, Total 0.2 mg/dL (0.2-1.2); Calc. Creatinine Clearance 0 mL/min (70-130); Calcium 9.8 mg/dL (7.8-10.44); Carbon Dioxide 24 mmol/L (22-29); Chloride 97 mmol/L (98-107); Estimated GFR 75; Globulin 3.7 g/dL (2.4-3.5); Glucose 314 mg/dL (70-105); Lipase 68 U/L (8-78); Potassium 4.1 mmol/L (3.5-5.1); Protein, Total 7.5 g/dL (6.0-8.3); Sodium 133 mmol/L (136-145); Troponin I Less than 0.010 ng/mL (< 0.028)
[2022-11-22 20:14] VITALS: BMI 44.4
[2022-11-22] MEDS ORDERED: Acetaminophen 325 MG TAB PO PRN (20:15)
[2022-11-22] MEDS ORDERED: Ondansetron ODT 4 MG TAB SL PRN (20:15)
[2022-11-22] MEDS ORDERED: Ondansetron PF 4 MG/2 ML Vial IVP PRN (20:15)
[2022-11-22] MEDS ORDERED: Glucagon 1 MG/ML KIT IM PRN (20:17)
[2022-11-22] MEDS ORDERED: Dextrose 5% in Water 1,000 ML IV PRN (20:17)
[2022-11-22] MEDS ORDERED: Dextrose 50% Abboject 50 ML SYRINGE SLOW IVP PRN (20:17)
[2022-11-22] MEDS ORDERED: Acetaminophen 650 MG Suppository PR PRN (20:17)
[2022-11-22] MEDS ORDERED: Nitroglycerin 0.4 MG TAB (25 Tab Bottle) SL PRN (20:41)
[2022-11-22 21:41] LABS: Troponin I Less than 0.010 ng/mL (< 0.028)
[2022-11-22] MEDS ORDERED: Insulin Glargine 30 UNITS/0.3 ML VIAL SC SCH (23:00)
[2022-11-23 00:24] LABS: Troponin I Less than 0.010 ng/mL (< 0.028)
[2022-11-23] MEDS: HumaLOG 300 UNITS/3 ML VIAL SC PRN ×5 (01:00→21:21)
[2022-11-23 04:50] LABS: #Eosinphils 0.3 thou/uL (0.0-0.7); #Monocytes 0.6 thou/uL (0.11-0.59); #Neutrophils 4.7 thou/uL (1.40-6.50); %Basophils 0.3 % (0.0-1.0); %Eosinophils 3.5 % (0.0-10.0); %Lymphocytes 38.8 % (21.0-51.0); %Monocytes 6.3 % (0.0-10.0); %Neutrophils 50.6 % (42.0-75.0); Hematocrit 38.1 % (36.0-47.0); Hemoglobin 12.6 g/dL (12.0-16.0); Mean Corpuscular HGB CONC 33.1 g/dL (32.0-36.0); Mean Corpuscular Hemoglobin 28.4 pg (27.0-31.0); Mean Platelet Volume 10.5 fL (7.4-10.4); Platelet Count 220 10x3/uL (130-400); RBC Distribution Width 13.2 % (11.5-14.5); Red Blood Cell (RBC) Count 4.43 mill/uL (4.20-5.40); White Blood Cell (WBC) Count 9.2 10x3/uL (4.8-10.8)
[2022-11-23 05:14] LABS: Anion Gap 12 mmol/L (10-20); BUN (Urea Nitrogen) 18 mg/dL (7.0-18.7); Calc. Creatinine Clearance 178 mL/min (70-130); Carbon Dioxide 27 mmol/L (22-29); Chloride 99 mmol/L (98-107); Estimated GFR 100; Glucose 311 mg/dL (70-105); Potassium 3.8 mmol/L (3.5-5.1); Sodium 134 mmol/L (136-145)
[2022-11-23] MEDS ORDERED: Prasugrel 10 MG TAB PO SCH (09:00)
[2022-11-23] MEDS: Aspirin Chewable 81 MG TAB PO SCH (09:31)
[2022-11-23] MEDS: Furosemide 20 MG TAB PO SCH (09:31)
[2022-11-23] MEDS ORDERED: Iopamidol 370 76% 100 ML VIAL ONE (10:19)
[2022-11-23] MEDS ORDERED: Nitroglycerin 0.4 MG TAB (25 Tab Bottle) ONE (11:09)
[2022-11-23] MEDS ORDERED: Heparin 25,000 units/D5W 500 ML IVPB SCH (11:15)
[2022-11-23] MEDS ORDERED: Heparin 10,000 UNITS/ 10 ML VIAL SLOW IVP SCH (11:15)
[2022-11-23] MEDS: Nitroglycerin 0.4 MG TAB (25 Tab Bottle) SL PRN ×2 (11:23→11:30)
[2022-11-23 11:32] LABS: Hematocrit 39.4 % (36.0-47.0); Platelet Count 221 10x3/uL (130-400)
[2022-11-23] MEDS ORDERED: Communication Order-Pharmacy FS SCH (12:45)
[2022-11-23] MEDS ORDERED: Sodium Chloride 0.9% 1,000 ML IV SCH ×2 (12:45→14:14)
[2022-11-23] MEDS ORDERED: Lidocaine 1% (PF) 30 ML VIAL ONE (12:56)
[2022-11-23] MEDS ORDERED: Nitroglycerin 50 MG/250 ML BOT 0 ML ONE (12:56)
[2022-11-23] MEDS ORDERED: fentaNYL 50 mcg/mL 1 mL Vial ONE (12:56)
[2022-11-23] MEDS ORDERED: Midazolam HCl 2 mg/2 ml Vial ONE (12:56)
[2022-11-23] MEDS ORDERED: Heparin 10,000 UNITS/ 10 ML VIAL ONE (12:56)
[2022-11-23] MEDS ORDERED: Protamine Sulfate 50 MG/5 ML VIAL ONE (14:02)
[2022-11-23] MEDS ORDERED: Acetaminophen/Codeine 30-300mg Tablet PO PRN ×2 (14:13)
[2022-11-23] MEDS ORDERED: Sodium Chloride 0.9% 200 ML IV PRN (14:13)
[2022-11-23] MEDS ORDERED: Nitroglycerin 0.4 MG TAB (25 Tab Bottle) SL PRN (14:13)
[2022-11-23] MEDS ORDERED: Insulin Glargine 30 UNITS/0.3 ML VIAL SC SCH (21:00)
[2022-11-24 05:29] LABS: #Eosinphils 0.3 thou/uL (0.0-0.7); #Monocytes 0.6 thou/uL (0.11-0.59); #Neutrophils 4.7 thou/uL (1.40-6.50); %Basophils 0.3 % (0.0-1.0); %Eosinophils 3.5 % (0.0-10.0); %Lymphocytes 35.2 % (21.0-51.0); %Monocytes 6.7 % (0.0-10.0); %Neutrophils 53.8 % (42.0-75.0); Hematocrit 38.5 % (36.0-47.0); Hemoglobin 12.6 g/dL (12.0-16.0); Mean Corpuscular HGB CONC 32.7 g/dL (32.0-36.0); Mean Corpuscular Hemoglobin 28.6 pg (27.0-31.0); Mean Corpuscular Volume 87.5 fl (78.0-98.0); Mean Platelet Volume 10.1 fL (7.4-10.4); Platelet Count 209 10x3/uL (130-400); RBC Distribution Width 13.2 % (11.5-14.5); White Blood Cell (WBC) Count 8.8 10x3/uL (4.8-10.8)
[2022-11-24 06:02] LABS: Anion Gap 12 mmol/L (10-20); BUN (Urea Nitrogen) 12 mg/dL (7.0-18.7); Calc. Creatinine Clearance 183 mL/min (70-130); Calcium 8.8 mg/dL (7.8-10.44); Carbon Dioxide 28 mmol/L (22-29); Chloride 99 mmol/L (98-107); Cholesterol 204 mg/dl (< 200 Desired); Estimated GFR 103; Glucose 281 mg/dL (70-105); HDL Cholesterol 29 mg/dL (>60 Neg Risk); Potassium 3.9 mmol/L (3.5-5.1); Sodium 135 mmol/L (136-145); Triglycerides 521 mg/dL (Less than 150)
[2022-11-24 07:40] LABS: LDL Cholesterol, Calculated 71 mg/dL
[2022-11-24] MEDS: Furosemide 20 MG TAB PO SCH (08:18)
[2022-11-24] MEDS: Aspirin Chewable 81 MG TAB PO SCH (08:18)
[2022-11-24] MEDS: HumaLOG 300 UNITS/3 ML VIAL SC PRN (11:35)
[2022-11-24 12:01] VITALS: BP 139/81; TEMP 97.6
[2022-11-24] MEDS ORDERED: Atorvastatin Calcium 20 MG TAB PO SCH (21:00)
== END 2022-11-24 15:00 | disposition home or self-care (01) ==
LOC: ERS 16:53 → 2SW 18:34 → INTOOBSV 11-23 14:14 → OBSVTOIN 11-23 14:14 → 2SW 11-23 15:42
PROVIDERS: ADMIT Student in an Organized Health Care Education/Training Program; ATTEND Hospitalist
PROC: 4A023N7 Measurement of Cardiac Sampling and Pressure, Left Heart, Percutaneous Approach (ICD-10-PCS; principal; 2022-11-22)
PROC: B215YZZ Fluoroscopy of Left Heart using Other Contrast (ICD-10-PCS; 2022-11-22)
DX: R07.89 Other chest pain (principal); E11.9 Type 2 diabetes mellitus without complications; I10 Essential (primary) hypertension; E78.00 Pure hypercholesterolemia, unspecified; G47.33 Obstructive sleep apnea (adult) (pediatric); E66.01 Morbid (severe) obesity due to excess calories; I45.81 Long QT syndrome; I25.10 Atherosclerotic heart disease of native coronary artery without angina pectoris; F41.9 Anxiety disorder, unspecified; Z88.0 Allergy status to penicillin; Z91.018 Allergy to other foods; Z88.2 Allergy status to sulfonamides; Z79.84 Long term (current) use of oral hypoglycemic drugs; Z79.4 Long term (current) use of insulin; Z79.82 Long term (current) use of aspirin; Z79.899 Other long term (current) drug therapy; Z95.5 Presence of coronary angioplasty implant and graft; Z68.34 Body mass index [BMI] 34.0-34.9, adult
CPT/HCPCS: 36415; 36416; 71045; 80048; 80053; 80061; 83690; 84484; 85025; 85347; 85730; 93005; 93010; 93458; 94760; 96374; 96376; 99152; C1769; G0378; J1644; J1815; J2001; J2250; J2720; J3010; J7050; Q9967

== ENCOUNTER 2024-04-03 11:35 | Emergency (ER) | payer BC, OTHER ==
[2024-04-03] MEDS ORDERED: Benzonatate 100 MG CAP ONE (12:06)
[2024-04-03] MEDS ORDERED: Acetaminophen 500 MG TAB ONE (12:12)
[2024-04-03] MEDS ORDERED: Ketorolac Tromethamine 30 MG (1 mL) VIAL ONE (12:13)
== END 2024-04-03 14:20 | disposition home or self-care (01) ==
LOC: ERS 11:35
DX: J20.9 Acute bronchitis, unspecified (principal); M54.9 Dorsalgia, unspecified; E11.9 Type 2 diabetes mellitus without complications; I10 Essential (primary) hypertension
CPT/HCPCS: 71046; 87081; 87428; 87430; 96372; J1885

== ENCOUNTER 2024-10-29 09:59 | Inpatient (IN) | payer OTHER ==
[2024-10-29 11:14] LABS: #Basophils 0.03 10x3/uL (0.0-0.2); #Eosinophils 0.05 10x3/uL (0.0-0.7); #Monocytes 1.00 10x3/uL (0.11-0.59); #Neutrophils 12.42 10x3/uL (1.40-6.50); %Basophils 0.2 % (0.0-1.0); %Eosinophils 0.3 % (0.0-10.0); %Lymphocytes 16.0 % (21.0-51.0); %Monocytes 6.2 % (0.0-10.0); %Neutrophils 77.0 % (42.0-75.0); Hematocrit 39.0 % (36.0-47.0); Hemoglobin 12.9 g/dL (12.0-16.0); Mean Corpuscular Hemoglobin 28.0 pg (27.0-31.0); Mean Corpuscular Volume 84.8 fL (78.0-98.0); Platelet Count 255 10x3/uL (130-400); Red Blood Cell (RBC) Count 4.60 mill/uL (4.20-5.40); White Blood Cell (WBC) Count 16.13 10x3/uL (4.8-10.8)
[2024-10-29 11:32] LABS: ALT (SGPT) 14 U/L (Less than 34); AST (SGOT) 14 U/L (11-34); Albumin 3.9 g/dL (3.1-4.5); Alkaline Phosphatase 96 U/L (40-110); Anion Gap 17 mmol/L (10-20); BUN (Urea Nitrogen) 21 mg/dL (7.0-18.7); Bilirubin, Total 0.6 mg/dL (0.3-1.2); Calc. Creatinine Clearance 0 mL/min (70-130); Calcium 9.4 mg/dL (7.8-10.44); Carbon Dioxide 25 mmol/L (22-29); Chloride 99 mmol/L (98-107); Globulin 3.6 g/dL (2.4-3.5); Glucose 236 mg/dL (70-105); Potassium 4.6 mmol/L (3.5-5.1); Sodium 136 mmol/L (136-145)
[2024-10-29 11:42] LABS: INR-International Normal Ratio 1.0; Prothrombin Time 13.4 sec (12.0-14.7)
[2024-10-29 11:43] LABS: PTT 31.5 sec (22.9-36.1)
[2024-10-29] MEDS ORDERED: Iopamidol-370 76% 500 ML MDV (1 ML CHARGE) ONE (11:47)
[2024-10-29 12:51] LABS: Bacteria/HPF None Seen HPF (None Seen); CAUTI Indications for Culture Pelvic or flank pain; Glucose, Urine (Dipstick) >=1000 mg/dL (Negative); Leukocyte Negative Leu/uL (Negative); Protein, Urine (Dipstick) Negative (Neg-Trace); Specific Gravity, Urine 1.041 (1.002-1.036); WBC/HPF None Seen HPF (0-3)
[2024-10-29 12:53] LABS: Urine Culture Reflex No No
[2024-10-29] MEDS ORDERED: Glucagon 1 MG/ML KIT IM PRN (14:15)
[2024-10-29] MEDS ORDERED: Dextrose 50% Abboject 50 ML SYRINGE SLOW IVP PRN (14:15)
[2024-10-29] MEDS ORDERED: Cefepime 2 GM VIAL ONE (14:24)
[2024-10-29] MEDS ORDERED: Vancomycin 1 GM/200 ML (FROZEN) BAG ONE (14:25)
[2024-10-29] MEDS: Ketorolac Tromethamine 30 MG (1 mL) VIAL IVP PRN (16:33)
[2024-10-29 16:44] VITALS: BMI 40.1
[2024-10-29] MEDS ORDERED: Famotidine 20 MG TAB PO SCH (21:00)
[2024-10-29] MEDS ORDERED: Vancomycin 1 GM in Sodium Chloride 0.9% 250 ML 300 ML IVPB SCH (21:00)
[2024-10-29] MEDS: Vancomycin 1.5 GM / NS 500 ML VIAL-2-BAG IVPB SCH (21:23)
[2024-10-29] MEDS: Pantoprazole 40 MG DR.TAB PO SCH (21:24)
[2024-10-29] MEDS: Pregabalin 50 MG CAP PO SCH (21:24)
[2024-10-29] MEDS: glipiZIDE XL 10 mg ER.TAB PO SCH (21:25)
[2024-10-29] MEDS: Acetaminophen 325 MG TAB PO PRN (21:25)
[2024-10-29] MEDS: metFORMIN XR 500 MG ER.TAB PO SCH (21:25)
[2024-10-29] MEDS: Cyclobenzaprine 10 MG TAB PO SCH (21:25)
[2024-10-29] MEDS: Melatonin 3 MG TAB PO PRN (21:26)
[2024-10-30 06:06] LABS: #Basophils 0.03 10x3/uL (0.0-0.2); #Eosinophils 0.03 10x3/uL (0.0-0.7); #Monocytes 1.08 10x3/uL (0.11-0.59); #Neutrophils 9.81 10x3/uL (1.40-6.50); %Basophils 0.2 % (0.0-1.0); %Eosinophils 0.2 % (0.0-10.0); %Lymphocytes 17.8 % (21.0-51.0); %Monocytes 8.1 % (0.0-10.0); %Neutrophils 73.3 % (42.0-75.0); Hematocrit 33.2 % (36.0-47.0); Hemoglobin 10.7 g/dL (12.0-16.0); Mean Corpuscular Hemoglobin 27.9 pg (27.0-31.0); Mean Corpuscular Volume 86.5 fL (78.0-98.0); Platelet Count 189 10x3/uL (130-400); Red Blood Cell (RBC) Count 3.84 mill/uL (4.20-5.40); White Blood Cell (WBC) Count 13.39 10x3/uL (4.8-10.8)
[2024-10-30 06:29] LABS: Vancomycin, Random 13.7 ug/mL (See Comment)
[2024-10-30 06:31] LABS: Anion Gap 9 mmol/L (10-20); BUN (Urea Nitrogen) 20 mg/dL (7.0-18.7); Calc. Creatinine Clearance 133 mL/min (70-130); Calcium 8.8 mg/dL (7.8-10.44); Carbon Dioxide 27 mmol/L (22-29); Chloride 102 mmol/L (98-107); Glucose 211 mg/dL (70-105); Potassium 3.9 mmol/L (3.5-5.1); Sodium 134 mmol/L (136-145)
[2024-10-30] MEDS: PARoxetine 20 MG TAB PO SCH (09:21)
[2024-10-30] MEDS: Lisinopril 20 MG TAB PO SCH (09:22)
[2024-10-30] MEDS: Aspirin Chewable 81 MG TAB PO SCH (09:23)
[2024-10-30] MEDS: Furosemide 20 MG TAB PO SCH (09:24)
[2024-10-30] MEDS: Vancomycin 1.25 GM / NS 250 ML VIAL-2-BAG IVPB SCH (21:09)
[2024-10-30] MEDS: Insulin Glargine 30 UNITS/0.3 ML VIAL SC SCH (21:10)
[2024-10-31 05:30] LABS: #Basophils 0.03 10x3/uL (0.0-0.2); #Eosinophils 0.06 10x3/uL (0.0-0.7); #Monocytes 0.97 10x3/uL (0.11-0.59); #Neutrophils 10.35 10x3/uL (1.40-6.50); %Basophils 0.2 % (0.0-1.0); %Eosinophils 0.4 % (0.0-10.0); %Lymphocytes 17.4 % (21.0-51.0); %Monocytes 7.0 % (0.0-10.0); %Neutrophils 74.6 % (42.0-75.0); Hematocrit 30.2 % (36.0-47.0); Hemoglobin 10.1 g/dL (12.0-16.0); Mean Corpuscular Hemoglobin 28.5 pg (27.0-31.0); Mean Corpuscular Volume 85.1 fL (78.0-98.0); Platelet Count 196 10x3/uL (130-400); Red Blood Cell (RBC) Count 3.55 mill/uL (4.20-5.40); White Blood Cell (WBC) Count 13.88 10x3/uL (4.8-10.8)
[2024-10-31 05:45] LABS: Anion Gap 10 mmol/L (10-20); BUN (Urea Nitrogen) 14 mg/dL (7.0-18.7); Calc. Creatinine Clearance 190 mL/min (70-130); Calcium 8.9 mg/dL (7.8-10.44); Carbon Dioxide 25 mmol/L (22-29); Chloride 103 mmol/L (98-107); Glucose 201 mg/dL (70-105); Potassium 3.8 mmol/L (3.5-5.1); Sodium 134 mmol/L (136-145)
[2024-10-31] MEDS ORDERED: Benzonatate 100 MG CAP PO PRN (07:43)
[2024-10-31] MEDS: Insulin Glargine 30 UNITS/0.3 ML VIAL SC SCH ×2 (09:50→21:32)
[2024-11-01] MEDS: Ondansetron PF 4 MG/2 ML Vial IVP PRN (04:21)
[2024-11-01] MEDS: cefTRIAXone\\ROCEPHIN 2 GM in Sodium Chloride 0.9% 100 ML IVPB SCH (15:44)
[2024-11-01] MEDS: metroNIDAZOLE 500 MG TAB PO SCH (20:43)
[2024-11-01] MEDS: Vancomycin 1 GM in Premix 1 BAG IVPB SCH (21:46)
[2024-11-02 07:26] LABS: #Basophils 0.03 10x3/uL (0.0-0.2); #Eosinophils 0.34 10x3/uL (0.0-0.7); #Monocytes 0.79 10x3/uL (0.11-0.59); #Neutrophils 8.02 10x3/uL (1.40-6.50); %Basophils 0.2 % (0.0-1.0); %Eosinophils 2.8 % (0.0-10.0); %Lymphocytes 25.0 % (21.0-51.0); %Monocytes 6.4 % (0.0-10.0); %Neutrophils 65.1 % (42.0-75.0); Hematocrit 35.3 % (36.0-47.0); Hemoglobin 11.6 g/dL (12.0-16.0); Mean Corpuscular Hemoglobin 28.3 pg (27.0-31.0); Mean Corpuscular Volume 86.1 fL (78.0-98.0); Platelet Count 308 10x3/uL (130-400); Red Blood Cell (RBC) Count 4.10 mill/uL (4.20-5.40); White Blood Cell (WBC) Count 12.32 10x3/uL (4.8-10.8)
[2024-11-02 07:40] LABS: Anion Gap 15 mmol/L (10-20); BUN (Urea Nitrogen) 11 mg/dL (7.0-18.7); Calc. Creatinine Clearance 184 mL/min (70-130); Calcium 9.9 mg/dL (7.8-10.44); Carbon Dioxide 29 mmol/L (22-29); Chloride 97 mmol/L (98-107); Glucose 98 mg/dL (70-105); Potassium 3.8 mmol/L (3.5-5.1); Sodium 137 mmol/L (136-145)
[2024-11-02 07:43] LABS: Vancomycin, Random 38.5 ug/mL (See Comment)
[2024-11-02] MEDS: Vancomycin 1 GM in Premix 1 BAG IVPB SCH (20:10)
[2024-11-03 05:46] LABS: #Basophils 0.03 10x3/uL (0.0-0.2); #Eosinophils 0.32 10x3/uL (0.0-0.7); #Monocytes 0.77 10x3/uL (0.11-0.59); #Neutrophils 6.39 10x3/uL (1.40-6.50); %Basophils 0.3 % (0.0-1.0); %Eosinophils 3.1 % (0.0-10.0); %Lymphocytes 27.8 % (21.0-51.0); %Monocytes 7.3 % (0.0-10.0); %Neutrophils 60.9 % (42.0-75.0); Hematocrit 34.9 % (36.0-47.0); Hemoglobin 11.4 g/dL (12.0-16.0); Mean Corpuscular Hemoglobin 27.7 pg (27.0-31.0); Mean Corpuscular Volume 84.9 fL (78.0-98.0); Platelet Count 312 10x3/uL (130-400); Red Blood Cell (RBC) Count 4.11 mill/uL (4.20-5.40); White Blood Cell (WBC) Count 10.49 10x3/uL (4.8-10.8)
[2024-11-03 06:09] LABS: Vancomycin, Random 11.3 ug/mL (See Comment)
[2024-11-03 06:10] LABS: Anion Gap 12 mmol/L (10-20); BUN (Urea Nitrogen) 9 mg/dL (7.0-18.7); Calc. Creatinine Clearance 176 mL/min (70-130); Calcium 9.7 mg/dL (7.8-10.44); Carbon Dioxide 28 mmol/L (22-29); Chloride 99 mmol/L (98-107); Glucose 180 mg/dL (70-105); Potassium 4.0 mmol/L (3.5-5.1); Sodium 135 mmol/L (136-145)
[2024-11-03] MEDS ORDERED: Insulin Regular 300 UNITS/3 ML VIAL SC PRN (09:48)
[2024-11-03 10:41] VITALS: BMI 40.1
[2024-11-03] MEDS ORDERED: PROPOFOL 20 ML ONE (12:12)
[2024-11-03] MEDS ORDERED: fentaNYL PF 100 MCG/2 ML SYRINGE ONE (12:12)
[2024-11-03] MEDS ORDERED: Ondansetron PF 4 MG/2 ML Vial ONE (13:46)
[2024-11-03] MEDS ORDERED: PHENYLEPHRINE-NS 100 MCG/ML 10 ML SYRINGE ONE (14:11)
[2024-11-03] MEDS: Senokot S 8.6-50 MG TAB PO SCH (20:43)
[2024-11-03] MEDS: Vancomycin HCl 1.25 GM in Sodium Chloride 0.9% 250 ML 250 ML IVPB SCH (20:46)
[2024-11-04] MEDS: Ketorolac Tromethamine 30 MG (1 mL) VIAL IVP PRN (00:15)
[2024-11-05 05:21] LABS: Vancomycin, Random 23.7 ug/mL (See Comment)
[2024-11-05 05:24] LABS: Anion Gap 12 mmol/L (10-20); BUN (Urea Nitrogen) 28 mg/dL (7.0-18.7); Calc. Creatinine Clearance 179 mL/min (70-130); Calcium 8.8 mg/dL (7.8-10.44); Carbon Dioxide 26 mmol/L (22-29); Chloride 98 mmol/L (98-107); Glucose 232 mg/dL (70-105); Potassium 4.1 mmol/L (3.5-5.1); Sodium 132 mmol/L (136-145)
[2024-11-05 05:41] LABS: Hematocrit 30.2 % (36.0-47.0); Hemoglobin 9.8 g/dL (12.0-16.0); Mean Corpuscular Hemoglobin 27.5 pg (27.0-31.0); Mean Corpuscular Volume 84.8 fL (78.0-98.0); Platelet Count 346 10x3/uL (130-400); Red Blood Cell (RBC) Count 3.56 mill/uL (4.20-5.40); White Blood Cell (WBC) Count 13.65 10x3/uL (4.8-10.8)
[2024-11-05 06:59] LABS: Anisocytosis SLIGHT = 6-15 cells HPF (0-5); Macrocytosis SLIGHT = 6-15 cells HPF (0-5); Platelet Adequacy Comment Platelets Normal; Smudge Cells 5.0 %
[2024-11-06 06:48] LABS: #Basophils 0.04 10x3/uL (0.0-0.2); #Eosinophils 0.43 10x3/uL (0.0-0.7); #Monocytes 0.89 10x3/uL (0.11-0.59); #Neutrophils 8.19 10x3/uL (1.40-6.50); %Basophils 0.3 % (0.0-1.0); %Eosinophils 3.3 % (0.0-10.0); %Lymphocytes 26.6 % (21.0-51.0); %Monocytes 6.8 % (0.0-10.0); %Neutrophils 62.0 % (42.0-75.0); Hematocrit 32.4 % (36.0-47.0); Hemoglobin 10.5 g/dL (12.0-16.0); Mean Corpuscular Hemoglobin 27.6 pg (27.0-31.0); Mean Corpuscular Volume 85.0 fL (78.0-98.0); Platelet Count 408 10x3/uL (130-400); Red Blood Cell (RBC) Count 3.81 mill/uL (4.20-5.40); White Blood Cell (WBC) Count 13.18 10x3/uL (4.8-10.8)
[2024-11-06 07:05] LABS: ALT (SGPT) 10 U/L (Less than 34); AST (SGOT) 22 U/L (11-34); Albumin 2.5 g/dL (3.1-4.5); Alkaline Phosphatase 88 U/L (40-110); Anion Gap 10 mmol/L (10-20); BUN (Urea Nitrogen) 22 mg/dL (7.0-18.7); Bilirubin, Total 0.1 mg/dL (0.3-1.2); Calc. Creatinine Clearance 171 mL/min (70-130); Calcium 8.9 mg/dL (7.8-10.44); Carbon Dioxide 29 mmol/L (22-29); Chloride 98 mmol/L (98-107); Globulin 3.7 g/dL (2.4-3.5); Glucose 200 mg/dL (70-105); Potassium 4.1 mmol/L (3.5-5.1); Sodium 133 mmol/L (136-145)
[2024-11-06] MEDS ORDERED: Lidocaine 1% PF 5 ML VIAL ONE (10:47)
[2024-11-06] MEDS ORDERED: Sodium Bicarbonate 2.5 MEQ/5 ML SDV ONE (10:48)
[2024-11-06] MEDS: Insulin Glargine 30 UNITS/0.3 ML VIAL SC SCH (20:18)
[2024-11-06] MEDS ORDERED: Heparin 5,000 UNITS/ML VIAL SC SCH (21:00)
[2024-11-07] MEDS: Insulin Glargine 30 UNITS/0.3 ML VIAL SC SCH (08:35)
[2024-11-07] MEDS ORDERED: Lidocaine 1% PF 5 ML VIAL ONE (08:49)
[2024-11-07] MEDS ORDERED: Sodium Bicarbonate 2.5 MEQ/5 ML SDV ONE (08:49)
[2024-11-07] MEDS ORDERED: Lidocaine 1% w/Epinephrine 1:100K 20 ML VIAL ONE (09:38)
[2024-11-07 11:41] VITALS: BP 153/85; TEMP 97.7
== END 2024-11-07 14:46 | disposition home health service (06) | DRG 872 ==
LOC: ERS 09:59 → SURG A 14:19
PROVIDERS: ADMIT Student in an Organized Health Care Education/Training Program; ATTEND Internal Medicine
PROC: 3E03329 Introduction of Other Anti-infective into Peripheral Vein, Percutaneous Approach (ICD-10-PCS; 2024-10-29)
PROC: 0J9Q3ZX Drainage of Right Foot Subcutaneous Tissue and Fascia, Percutaneous Approach, Diagnostic (ICD-10-PCS; principal; 2024-11-03)
PROC: 02HV33Z Insertion of Infusion Device into Superior Vena Cava, Percutaneous Approach (ICD-10-PCS; 2024-11-06)
PROC: B5181ZA Fluoroscopy of Superior Vena Cava using Low Osmolar Contrast, Guidance (ICD-10-PCS; 2024-11-06)
PROC: 05HY33Z Insertion of Infusion Device into Upper Vein, Percutaneous Approach (ICD-10-PCS; 2024-11-07)
DX: A40.9 Streptococcal sepsis, unspecified (principal); L02.611 Cutaneous abscess of right foot; Z68.41 Body mass index [BMI] 40.0-44.9, adult; E87.1 Hypo-osmolality and hyponatremia; I25.10 Atherosclerotic heart disease of native coronary artery without angina pectoris; E11.610 Type 2 diabetes mellitus with diabetic neuropathic arthropathy; I10 Essential (primary) hypertension; E66.9 Obesity, unspecified; K21.9 Gastro-esophageal reflux disease without esophagitis; M19.90 Unspecified osteoarthritis, unspecified site; E11.628 Type 2 diabetes mellitus with other skin complications; F41.8 Other specified anxiety disorders; D53.9 Nutritional anemia, unspecified; E78.5 Hyperlipidemia, unspecified; M54.50 Low back pain, unspecified; F32.A Depression, unspecified; Z98.890 Other specified postprocedural states; Z90.49 Acquired absence of other specified parts of digestive tract; Z90.710 Acquired absence of both cervix and uterus; Z95.5 Presence of coronary angioplasty implant and graft; Z79.4 Long term (current) use of insulin; Z79.84 Long term (current) use of oral hypoglycemic drugs; Z88.1 Allergy status to other antibiotic agents; Z88.2 Allergy status to sulfonamides; Z91.018 Allergy to other foods
CPT/HCPCS: 36415; 36416; 36573; 71045; 80048; 80053; 80202; 81001; 83036; 83605; 84484; 85025; 85610; 85730; 87040; 87070; 87077; 87081; 87149; 87186; 87205; 93005; 94760; 96374; 96375; 96376; 97139; C1713; C1751; C1769; C1894; J0692; J0696; J0878; J1100; J1335; J1815; J1885; J2250; J2270; J2405; J2704; J3010; J3373; J7030; J7050; Q9967